=== PATIENT | male | born 1945 | race Caucasian/White ===

== ENCOUNTER → 2016-03-03 | Outpatient (CLI) | payer OTHER ==
[~2016-03-03] MED LIST: ALBU1AER9 INH; AMT25 PO; ASPI81TA28 PO; COEN1CAP28 PO; CYAN500T PO; DUTA0.5C PO; FLM4 PO; GABA-113 PO; GLC/500 PO; HYDR-5688 PO; MONT1TAB3 PO; OMEG10007 PO; ONDA4TAB10 SL; OXYC-57 PO; SIMV10TA2 PO; TAMS0.4C38 PO; VNTHFA/IN INH; VTMD1000 PO
[2016-03-03 14:01] LABS: % FREE PSA 39.8 %; FREE PSA 1.64 ng/ml; PROSTATE SPECIFIC ANTIGEN 4.12 ng/ml (0.000-4.000)
== END | disposition home or self-care (01) ==
LOC: C.LABBC 11:24
PROVIDERS: ATTEND Family Medicine
DX: Z11.59 Encounter for screening for other viral diseases (principal); N40.1 Benign prostatic hyperplasia with lower urinary tract symptoms

== ENCOUNTER 2016-03-18 06:56 | Emergency (ER) | payer OTHER ==
[~2016-03-18] VITALS: Ht 172.7 cm; Wt 108.6 kg
[~2016-03-18 06:56] MED LIST changes: -COEN1CAP28 PO; -CYAN500T PO; -DUTA0.5C PO; -FLM4 PO; -GABA-113 PO; -HYDR-5688 PO; -ONDA4TAB10 SL; -OXYC-57 PO; -TAMS0.4C38 PO; -VNTHFA/IN INH
[2016-03-18 06:58] VITALS: TEMP 36.6; Ht 172.7 cm; Wt 108.6 kg
[2016-03-18] MEDS ORDERED: COEN1CAP28 PO (07:31)
[2016-03-18] MEDS ORDERED: GABA-113 PO (07:31)
[2016-03-18] MEDS ORDERED: CYAN500T PO (07:31)
[2016-03-18] MEDS ORDERED: ACETAMINOPHEN 500 MG TAB PO STA (07:32)
[2016-03-18] MEDS ORDERED: KETOROLAC TROMETHAMINE 30 MG/ML VIAL IV STA (07:32)
[2016-03-18] MEDS ORDERED: SODIUM CHLORIDE 0.9% 1000ML 500 ML IV STA (07:32)
[2016-03-18] MEDS ORDERED: HYDROmorphone INJ 1 MG/ML SYR IV STA (07:32)
[2016-03-18] MEDS ORDERED: ONDANSETRON INJ 2 MG/ML 2 ML VIAL IV STA (07:32)
--- NOTE | 2016-03-18 07:40 | EMERGENCY ROOM VISIT NOTE ---
History Report prepared by Janes: Roberto Francisco Under the Supervision of: Dr. Goldy Mcallister M.D. First contact with patient: 07:07 Chief Complaint: KIDNEY STONE Stated Complaint: BACK PAIN,FLANK PAIN, KIDNEY STONE History of Present Illness The patient is a 70 year old male who presents to the Emergency Room with complaints of persistent left-sided abdominal pain that started upon waking this morning around 0300. He describes the pain as sharp and rates the pain as a 10 out of 10 in severity at worst. The pain woke him up this morning. He notes that the pain radiates to his left flank, groin area, and back. He also could not urinate this morning. The patient has chronic kidney stones, and has them around 4 times per year. He says these symptoms this morning remind him of the first time he ever had a kidney stone. He denies any fevers, chills, nausea , vomiting, or hematuria. The patient sees a urologist and has an appointment with the urologist next week. He notes that he does take [place] as needed for chronic back pain. Source of History: patient Onset: Upon waking this morning around 0300 Position: abdomen (left-sided) Symptom Intensity: 10/10 in severity Quality: sharp Timing: other (persistent) Associated Symptoms: + back pain, + urinary symptoms (inability to urinate this morning), No chills, No fevers, No nausea, No vomiting Note: Associated symptoms: Left flank and groin pain. Denies hematuria. Review of Systems See HPI for pertinent positives & negatives. A total of 10 systems reviewed and were otherwise negative. Past Medical & Surgical Medical Problems: (1) Asthma (2) Diabetes (3) HTN (hypertension) (4) Kidney stone (5) Kidney stones Family History FH: cancer Kidney stones Social History Smoking Status: Never Smoker Smokeless Tobacco Use: No Alcohol Use: none Drug Use: none Marital Status: Housing Status: lives with family Occupation Status: retired Current/Historical Medications Scheduled Aspirin (Aspirin Ec), 81 MG PO QAM Cholecalciferol (Vitamin D3), 1,000 INTER.UNIT PO QAM Coenzyme Q10 (Ubidecarenone) (Co Q10), 1 CAP PO DAILY Cyanocobalamin (Vitamin B-12), 1 TAB PO DAILY Fish Oil ([place]-3), 1-2 TABS PO Q2-3D Gabapentin (Neurontin), 300 MG PO TID Metformin Hcl (Glucophage), 1,000 MG PO BID Montelukast Sodium (Singulair), 10 MG PO HS Ondasetron Odt (Zofran Odt), 4 MG SL Q6H Simvastatin (Zocor), 10 MG PO QPM Tamsulosin Hcl (Flomax), 0.4 MG PO DAILY Scheduled PRN Albuterol (Proair Hfa), 1-2 PUFFS INH Q4 PRN for SOB/Wheezing Oxycodone/Acetaminophen 5MG/325MG (Percocet 5MG/325MG), 1-2 TABLETS PO Q4H PRN for Pain Allergies Coded Allergies: Fluticasone (Unverified Allergy, Unknown, TACHYCARDIA, 03/18/16) Milk Protein Extract (Unverified Allergy, Unknown, TACHYCARDIA, 03/18/16) Salmeterol (Unverified Allergy, Unknown, TACHYCARDIA, 03/18/16) Physical Exam Vital Signs Date Time Temp Pulse Resp B/P Pulse Ox O2 Delivery O2 Flow Rate FiO2 03/18/16 08:49 76 20 125/79 94 Room Air 03/18/16 06:58 36.6 81 18 163/95 92 Room Air Physical Exam CONSTITUTIONAL: Moderate painful distress. HEENT: No icterus, moist mucous membranes NECK: No meningismus, trachea is midline. CARDIOVASCULAR: Regular rate, normal perfusion RESPIRATORY: Unlabored breathing. Clear to auscultation. GASTROINTESTINAL: Non-tender GENITOURINARY: Left flank tenderness. MUSCULOSKELETAL: Full range of motion NEUROLOGIC: No acute gross focal deficits. PSYCHIATRIC: Normal affect SKIN: Normal for ethnicity. Medical Decision & Procedures ER Provider Diagnostic Interpretation: CT results as stated below per my review and radiologist interpretation. CT SCAN OF THE ABDOMEN AND PELVIS WITHOUT CONTRAST CLINICAL HISTORY: Flank pain COMPARISON STUDY: 03/24/2007 TECHNIQUE: CT scan of the abdomen and pelvis was performed from the lung bases to the proximal femurs. Images are reviewed in the axial, sagittal, and coronal planes. IV contrast was not administered for this examination. CT DOSE: 1690.04 mGy.cm FINDINGS: Lower chest: There are bibasal atelectatic changes. Liver: There is mild hepatic steatosis. No focal hepatic masses are visualized on this noncontrast study. Gallbladder: Unremarkable. Spleen: Normal in size and attenuation. Pancreas: Unremarkable. Adrenal glands: Unremarkable. Kidneys: 2 left renal calculi are visualized, the largest of which measures 2.5 mm. There is mild left-sided hydronephrosis. There is mild left-sided perinephric stranding. There is a 2 mm obstructing distal left ureteral calculus just proximal to the left ureterovesical junction. No bladder calculi are visualized. Bowel: There are no transition zones indicate bowel obstruction. There is no evidence of acute diverticulitis. The appendix appears normal. Peritoneum: There is no intraperitoneal free air or abdominal ascites. There are small bilateral fat-containing inguinal hernias. Vasculature: The abdominal aorta is normal in course and caliber. Adenopathy: None. Pelvic viscera: The prostate is enlarged measuring 7.8 cm. Skeletal structures: No destructive osseous lesions are seen. IMPRESSION: 1. Left-sided nephrolithiasis 2. 2 mm obstructing distal left ureteral calculus 3. No evidence of bowel obstruction. No evidence of free air 4. Normal appendix. No evidence of acute diverticulitis 5. Prostamegaly Electronically signed by: Andrews Day M.D. 03/18/2016 9:36 AM Dictated Date/Time: 03/18/2016 9:28 AM Laboratory Results 03/18/16 07:15 Red Blood Count 4.91, Mean Corpuscular Volume 88.4, Mean Corpuscular Hemoglobin 31.4, Mean Corpuscular Hemoglobin Concent 35.5, Mean Platelet Volume 10.5, Neutrophils (%) (Auto) 79.2, Lymphocytes (%) (Auto) 11.3, Monocytes (%) (Auto) 6.6, Eosinophils (%) (Auto) 1.7, Basophils (%) (Auto) 1.0, Neutrophils # (Auto) 8.24, Lymphocytes # (Auto) 1.18, Monocytes # (Auto) 0.69, Eosinophils # (Auto) 0.18, Basophils # (Auto) 0.10 03/18/16 07:15 Test 03/18/16 07:08 03/18/16 07:15 Urine Color YELLOW Urine Appearance CLEAR (CLEAR) Urine pH 5.0 (4.5-7.5) Urine Specific [place] 1.020 (1.000-1.030) Urine Protein NEG (NEG) Urine Glucose (UA) TRACE (NEG) Urine Ketones NEG (NEG) Urine Occult Blood 3+ (NEG) Urine Nitrite NEG (NEG) Urine Bilirubin NEG (NEG) Urine Urobilinogen NEG (NEG) Urine Leukocyte Esterase NEG (NEG) Urine WBC (Auto) 1-5 /hpf (0-5) Urine RBC (Auto) 10-30 /hpf (0-4) Urine Hyaline Casts (Auto) 1-5 /lpf (0-5) Urine Epithelial Cells (Auto) 5-10 /lpf (0-5) Urine Bacteria (Auto) NEG (NEG) Urine Crystals CALCIUM OXALATE (NONE Urine Mucus PRESENT (NONE PRSENT) White Blood Count 10.41 K/uL (4.8-10.8) Red Blood Count 4.91 M/uL (4.7-6.1) Hemoglobin 15.4 g/dL (14.0-18.0) Hematocrit 43.4 % (42-52) Mean Corpuscular Volume 88.4 fL (80-100) Mean Corpuscular Hemoglobin 31.4 pg (25-34) Mean Corpuscular Hemoglobin Concent 35.5 g/dl (32-36) Platelet Count 211 K/uL (130-400) Mean Platelet Volume 10.5 fL (7.4-10.4) Neutrophils (%) (Auto) 79.2 % Lymphocytes (%) (Auto) 11.3 % Monocytes (%) (Auto) 6.6 % Eosinophils (%) (Auto) 1.7 % Basophils (%) (Auto) 1.0 % Neutrophils # (Auto) 8.24 K/uL (1.4-6.5) Lymphocytes # (Auto) 1.18 K/uL (1.2-3.4) Monocytes # (Auto) 0.69 K/uL (0.11-0.59) Eosinophils # (Auto) 0.18 K/uL (0-0.5) Basophils # (Auto) 0.10 K/uL (0-0.2) RDW Standard Deviation 44.1 fL (36.4-46.3) RDW Coefficient of Variation 13.7 % (11.5-14.5) Immature Granulocyte % (Auto) 0.2 % Immature Granulocyte # (Auto) 0.02 K/uL (0.00-0.02) Anion Gap 11.0 mmol/L (3-11) Est Creatinine Clear Calc Drug Dose 98.2 ml/min Estimated GFR () 103.3 Estimated GFR (Non- 89.1 BUN/Creatinine Ratio 30.9 (10-20) Calcium Level 8.8 mg/dl (8.5-10.1) Labs reviewed by ED physician. Medications Administered Medications (Trade) Dose Ordered Sig/Koby Route Start Time Stop Time Status Last Admin Dose Admin Acetaminophen 1000 mg 1,000 mg NOW STAT PO 03/18/16 07:32 03/18/16 07:34 DC 03/18/16 07:51 1,000 MG Sodium Chloride (Nss 1000ml) 500 ml @ 0 mls/hr Q0M STAT IV 03/18/16 07:32 03/18/16 07:34 DC 03/18/16 07:42 500 MLS/HR Ondansetron HCl (Zofran Inj) 4 mg PRN STAT IV 03/18/16 07:32 03/18/16 07:34 DC 03/18/16 07:42 4 MG Ketorolac Tromethamine (Toradol Inj) 15 mg NOW STAT IV 03/18/16 07:32 03/18/16 07:34 DC 03/18/16 07:50 15 MG Hydromorphone HCl (Dilaudid Inj) 1 mg PRN STAT IV 03/18/16 07:32 03/18/16 07:34 DC 03/18/16 07:52 1 MG ED Course 0720: The medical student evaluated the patient in room B4B. 0732: Ordered Dilaudid Inj 1 mg IV PRN, Toradol Inj 15 mg IV, Zofran Inj 4 mg IV PRN, NSS 500 ml @ 0 mls/hr Wide Open IV, Tylenol Tab 1000 mg PO. 0733: Past medical records reviewed. The patient was evaluated in room B4B. A complete history and physical examination was performed. 1012 I reevaluated the patient and he is resting comfortably. The patient verbally expressed understanding and agreement of the treatment plan. The patient will be discharged. Medical Decision Differential diagnoses include: kidney stone, kidney infection, back pain. 70-year-old with history of kidney stones presents into the emergency room for several hours of moderate to severe waxing waning left-sided flank pain radiating to his groin consistent with prior episodes of ureterolithiasis. CT scan confirmed 2 mm stone in patient comfortable on reexamination prior to discharge at 10:15 AM. He has a urologist and understands to follow-up. Prescription for Percocet, Zofran and Flomax were written. patient had no further concerns Impression Primary Impression: Kidney stone Scribe Attestation The scribe's documentation has been prepared under my direction and personally reviewed by me in its entirety. I confirm that the note above accurately reflects all work, treatment, procedures, and medical decision making performed by me. Departure Information Dispostion Home / Self-Care Prescriptions Ondasetron Odt (ZOFRAN ODT) 4 Mg Tab 4 MG SL Q6H for Nausea, #20 TAB Prov: Goldy Mcallister MD 03/18/16 Tamsulosin Hcl (FLOMAX) 0.4 Mg Cap 0.4 MG PO DAILY, #10 CAP Prov: Goldy Mcallister MD 03/18/16 Oxycodone/Acetaminophen 5MG/325MG (PERCOCET 5MG/325MG) Tab 1-2 TABLETS PO Q4H Y for Pain, #20 TAB Prov: Goldy Mcallister MD 03/18/16 Referrals Azeem Garner D.O.Int.Med. (PCP) Forms HOME CARE DOCUMENTATION FORM, IMPORTANT VISIT INFORMATION Patient Instructions ED Stone Renal W Colic, Kidney Stones - [facility], My [facility]
[2016-03-18 07:43] LABS: COMPLETE YES; EOS % 1.7 %; HEMATOCRIT 43.4 % (42-52); IG% 0.2 %; LYMPH % 11.3 %; LYMPH ABS # 1.18 K/uL (1.2-3.4); MEAN CELL VOLUME 88.4 fL (80-100); MEAN CORPUSCULAR HEMOGLOBIN 31.4 pg (25-34); MEAN CORPUSCULAR HGB CONC 35.5 g/dl (32-36); MEAN PLATELET VOLUME 10.5 fL (7.4-10.4); MONO % 6.6 %; NEUT % 79.2 %; PLATELET COUNT 211 K/uL (130-400); RED BLOOD COUNT 4.91 M/uL (4.7-6.1); WHITE BLOOD COUNT 10.41 K/uL (4.8-10.8)
[2016-03-18 07:49] LABS: URINE APPEARANCE CLEAR (CLEAR); URINE BILIRUBIN NEG (NEG); URINE COLOR YELLOW; URINE NITRITE NEG (NEG); UROBILINOGEN NEG (NEG); ZZUR CULT IF INDIC CLEAN CATCH NO
[2016-03-18 07:50] LABS: BUN/CREATININE RATIO 30.9 (10-20); CALCIUM 8.8 mg/dl (8.5-10.1); CREATININE 0.86 mg/dl (0.60-1.40); POTASSIUM 4.4 mmol/L (3.5-5.1)
[2016-03-18 07:55] LABS: MANUAL MICROSCOPIC REQUIRED? NO; REVIEW REQ? YES
[2016-03-18 08:06] LABS: URINE MUCUS PRESENT (NONE PRSENT)
--- NOTE | 2016-03-18 09:38 | DIAGNOSTIC IMAGING REPORT ---
CT SCAN OF THE ABDOMEN AND PELVIS WITHOUT CONTRAST CLINICAL HISTORY: Flank pain COMPARISON STUDY: 03/24/2007 TECHNIQUE: CT scan of the abdomen and pelvis was performed from the lung bases to the proximal femurs. Images are reviewed in the axial, sagittal, and coronal planes. IV contrast was not administered for this examination. CT DOSE: 1690.04 mGy.cm FINDINGS: Lower chest: There are bibasal atelectatic changes. Liver: There is mild hepatic steatosis. No focal hepatic masses are visualized on this noncontrast study. Gallbladder: Unremarkable. Spleen: Normal in size and attenuation. Pancreas: Unremarkable. Adrenal glands: Unremarkable. Kidneys: 2 left renal calculi are visualized, the largest of which measures 2.5 mm. There is mild left-sided hydronephrosis. There is mild left-sided perinephric stranding. There is a 2 mm obstructing distal left ureteral calculus just proximal to the left ureterovesical junction. No bladder calculi are visualized. Bowel: There are no transition zones indicate bowel obstruction. There is no evidence of acute diverticulitis. The appendix appears normal. Peritoneum: There is no intraperitoneal free air or abdominal ascites. There are small bilateral fat-containing inguinal hernias. Vasculature: The abdominal aorta is normal in course and caliber. Adenopathy: None. Pelvic viscera: The prostate is enlarged measuring 7.8 cm. Skeletal structures: No destructive osseous lesions are seen. IMPRESSION: 1. Left-sided nephrolithiasis 2. 2 mm obstructing distal left ureteral calculus 3. No evidence of bowel obstruction. No evidence of free air 4. Normal appendix. No evidence of acute diverticulitis 5. Prostamegaly Electronically signed by: Andrews Day M.D. 03/18/2016 9:36 AM Dictated Date/Time: 03/18/2016 9:28 AM
[2016-03-18] MEDS ORDERED: OXYC-57 PO (10:01)
[2016-03-18] MEDS ORDERED: TAMS0.4C38 PO (10:08)
[2016-03-18] MEDS ORDERED: ONDA4TAB10 SL (10:09)
[2016-03-18 10:19] VITALS: BP 127/80; PULSE 76; O2SAT 94
== END 2016-03-18 10:20 | disposition home or self-care (01) ==
LOC: C.EDB 06:57
DX: N20.0 Calculus of kidney (principal); J45.909 Unspecified asthma, uncomplicated; E11.9 Type 2 diabetes mellitus without complications; I10 Essential (primary) hypertension; Z79.82 Long term (current) use of aspirin

== ENCOUNTER 2016-06-11 10:22 | Emergency (ER) | payer OTHER ==
[~2016-06-11] VITALS: Ht 172.7 cm; Wt 105.0 kg
[~2016-06-11 10:22] MED LIST changes: -AMT25 PO; +COEN1CAP28 PO; +CYAN500T PO; +GABA-113 PO; +ONDA4TAB10 SL; +OXYC-57 PO
[2016-06-11 10:28] VITALS: TEMP 36.4; Ht 172.7 cm; Wt 105.0 kg
[2016-06-11] MEDS ORDERED: SODIUM CHLORIDE 0.9% 1000ML 1,000 ML IV STA ×2 (11:02)
[2016-06-11] MEDS ORDERED: ONDANSETRON INJ 2 MG/ML 2 ML VIAL IV STA (11:02)
[2016-06-11] MEDS ORDERED: HYDROmorphone INJ 1 MG/ML SYR IV STA (11:02)
--- NOTE | 2016-06-11 11:08 | EMERGENCY ROOM VISIT NOTE ---
History Report prepared by Janes: Hipolito Carranza Under the Supervision of: Dr. Brenda Cortes M.D. First contact with patient: 10:51 Chief Complaint: KIDNEY STONE Stated Complaint: POSSIBLE KIDNEY STONE History of Present Illness The patient is a 70 year old male who presents to the Emergency Room with complaints of severe left flank pain starting yesterday and worsening today. He reports nausea but denies vomiting. He has a history of kidney stones with the last one occurring in March. The patient denies fevers, chills, chest pain, shortness of breath, or any other complaints. Source of History: patient Onset: yesterday Position: other (left flank) Symptom Intensity: severe Timing: worsening Associated Symptoms: No SOB, No chest pain, No chills, No fevers, No vomiting Review of Systems See HPI for pertinent positives & negatives. A total of 10 systems reviewed and were otherwise negative. Past Medical & Surgical Medical Problems: (1) Asthma (2) Diabetes (3) HTN (hypertension) (4) Kidney stone (5) Kidney stones Family History FH: cancer Kidney stones Social History Smoking Status: Never Smoker Alcohol Use: none Drug Use: none Marital Status: Housing Status: lives with family Occupation Status: retired Current/Historical Medications Scheduled Aspirin (Aspirin Ec), 81 MG PO QAM Cholecalciferol (Vitamin D3), 1,000 INTER.UNIT PO QAM Coenzyme Q10 (Ubidecarenone) (Co Q10), 1 CAP PO DAILY Cyanocobalamin (Vitamin B-12), 1 TAB PO DAILY Dutasteride (Avodart), 0.5 MG PO DAILY Fish Oil ([place]-3), 1-2 TABS PO Q2-3D Gabapentin (Neurontin), 300 MG PO TID Metformin Hcl (Glucophage), 1,000 MG PO BID Montelukast Sodium (Singulair), 10 MG PO HS Simvastatin (Zocor), 10 MG PO QPM Tamsulosin HCl (Tamsulosin HCl), 1 TAB PO DAILY Scheduled PRN Albuterol Hfa (Ventolin Hfa), 2-4 PUFFS INH Q6H PRN for SOB/Wheezing Hydrocodone/Acetaminophen 5MG/325MG ([place] 5MG/325MG), 1-2 TABLETS PO Q6 PRN for Pain Allergies Coded Allergies: Fluticasone (Unverified Allergy, Unknown, TACHYCARDIA, 4/28/17) Milk Protein Extract (Unverified Allergy, Unknown, TACHYCARDIA, 06/11/16) Salmeterol (Unverified Allergy, Unknown, TACHYCARDIA, 06/11/16) Physical Exam Vital Signs Date Time Temp Pulse Resp B/P Pulse Ox O2 Delivery O2 Flow Rate FiO2 06/11/16 13:16 73 19 154/80 94 06/11/16 12:39 70 18 160/89 94 06/11/16 10:28 36.4 75 20 173/97 93 Room Air Physical Exam Vital signs reviewed. General: Well-appearing, in no significant distress. HEENT: No scleral icterus, PERRLA, neck supple. Atraumatic. Cardiovascular: Regular rate and rhythm, no extra sounds. Pulmonary: Clear to auscultation bilaterally, normal work of breathing. Abdomen: Soft, mild left sided abdominal tenderness, nondistended, positive bowel sounds. No CVA tenderness. Musculoskeletal: Atraumatic, no peripheral edema. Neurologic: Patient awake alert and oriented x 3 Skin: Warm, dry, no rash Medical Decision & Procedures ER Provider Diagnostic Interpretation: X-ray results as stated below per interpretation by me and the radiologist: KUB CLINICAL HISTORY: Left flank pain. FINDINGS: 2 AP supine abdominal radiographs are compared to study dated 07/21/2012 and correlated with abdominal CT dated . There is a nonobstructed abdominal bowel gas pattern. A 4 mm calcification projects over the left sacrum in the pelvis. This was not seen on the 2013 examination and may represent a distal left ureteral stone. No definite calcifications are seen projecting over either kidney. The bony structures appear intact. IMPRESSION: 1. A 4 mm calcification projects over the left sacrum. This was not seen on the 2013 KUB and may represent a distal ureteral calculus given the history of left flank pain. 2. No additional calcifications are seen projecting over either kidney. 3. Nonobstructed abdominal bowel gas pattern. Electronically signed by: Vidal Raphael M.D. 06/11/2016 12:08 PM Dictated Date/Time: 06/11/2016 12:06 PM US results as stated below per my review and radiologist interpretation: ULTRASOUND KIDNEYS AND BLADDER CLINICAL HISTORY: Left flank pain. COMPARISON STUDY: Abdominal CT dated 03/18/16. KUB dated 06/11/2016. TECHNIQUE: Real-time, grayscale, and color flow sonography of the kidneys and bladder is performed. Images are reviewed in the transverse and longitudinal planes. FINDINGS: Kidneys: The kidneys are normal in size and echotexture. The right kidney measures 13.8 x 6.3 x 5.8 cm and the left kidney measures 14.8 x 7.0 x 6.2 cm. There is mild left-sided hydronephrosis. No hydronephrosis is seen on the right. No shadowing renal calculi are identified. There is no sonographic evidence of contour deforming renal mass lesion. No perinephric fluid is identified. Bladder: The prostate gland is enlarged and heterogeneous. The bladder is decompressed and grossly unremarkable. Ureteral jets were not clearly seen. Upper abdomen: Survey images of the liver show hepatomegaly and hepatic steatosis. IMPRESSION: 1. There is mild left hydronephrosis. When correlated with today's abdominal radiograph this is likely related to an obstructing distal left ureteral calculus. 2. There is no right-sided hydronephrosis. 3. Prostatomegaly. 4. The bladder was decompressed and grossly unremarkable. 5. Hepatomegaly and hepatic steatosis. Electronically signed by: Vidal Raphael M.D. 06/11/2016 12:36 PM Dictated Date/Time: 06/11/2016 12:33 PM Laboratory Results 06/11/16 10:58 Red Blood Count 5.02, Mean Corpuscular Volume 89.8, Mean Corpuscular Hemoglobin 30.3, Mean Corpuscular Hemoglobin Concent 33.7, Mean Platelet Volume 10.0, Neutrophils (%) (Auto) 79.8, Lymphocytes (%) (Auto) 10.8, Monocytes (%) (Auto) 7.6, Eosinophils (%) (Auto) 0.9, Basophils (%) (Auto) 0.6, Neutrophils # (Auto) 8.45, Lymphocytes # (Auto) 1.14, Monocytes # (Auto) 0.80, Eosinophils # (Auto) 0.10, Basophils # (Auto) 0.06 06/11/16 10:58 Test 06/11/16 10:53 06/11/16 10:58 Urine Color YELLOW Urine Appearance CLOUDY (CLEAR) Urine pH 5.0 (4.5-7.5) Urine Specific [place] 1.028 (1.000-1.030) Urine Protein NEG (NEG) Urine Glucose (UA) 2+ (NEG) Urine Ketones NEG (NEG) Urine Occult Blood 3+ (NEG) Urine Nitrite NEG (NEG) Urine Bilirubin NEG (NEG) Urine Urobilinogen NEG (NEG) Urine Leukocyte Esterase NEG (NEG) Urine WBC (Auto) 1-5 /hpf (0-5) Urine RBC (Auto) >30 /hpf (0-4) Urine Hyaline Casts (Auto) 1-5 /lpf (0-5) Urine Epithelial Cells (Auto) 0-5 /lpf (0-5) Urine Bacteria (Auto) NEG (NEG) Urine Crystals CALCIUM OXALATE (NONE White Blood Count 10.58 K/uL (4.8-10.8) Red Blood Count 5.02 M/uL (4.7-6.1) Hemoglobin 15.2 g/dL (14.0-18.0) Hematocrit 45.1 % (42-52) Mean Corpuscular Volume 89.8 fL (80-100) Mean Corpuscular Hemoglobin 30.3 pg (25-34) Mean Corpuscular Hemoglobin Concent 33.7 g/dl (32-36) Platelet Count 213 K/uL (130-400) Mean Platelet Volume 10.0 fL (7.4-10.4) Neutrophils (%) (Auto) 79.8 % Lymphocytes (%) (Auto) 10.8 % Monocytes (%) (Auto) 7.6 % Eosinophils (%) (Auto) 0.9 % Basophils (%) (Auto) 0.6 % Neutrophils # (Auto) 8.45 K/uL (1.4-6.5) Lymphocytes # (Auto) 1.14 K/uL (1.2-3.4) Monocytes # (Auto) 0.80 K/uL (0.11-0.59) Eosinophils # (Auto) 0.10 K/uL (0-0.5) Basophils # (Auto) 0.06 K/uL (0-0.2) RDW Standard Deviation 44.7 fL (36.4-46.3) RDW Coefficient of Variation 13.6 % (11.5-14.5) Immature Granulocyte % (Auto) 0.3 % Immature Granulocyte # (Auto) 0.03 K/uL (0.00-0.02) Red Blood Cell Morphology Unremarkable Anion Gap 7.0 mmol/L (3-11) Est Creatinine Clear Calc Drug Dose 91.2 ml/min Estimated GFR () 100.0 Estimated GFR (Non- 86.3 BUN/Creatinine Ratio 18.4 (10-20) Calcium Level 8.9 mg/dl (8.5-10.1) Total Bilirubin 0.5 mg/dl (0.2-1) Direct Bilirubin < 0.1 mg/dl (0-0.2) Aspartate Amino Transf (AST/SGOT) 33 U/L (15-37) Alanine Aminotransferase (ALT/SGPT) 59 U/L (12-78) Alkaline Phosphatase 72 U/L (45-117) Total Protein 7.6 gm/dl (6.4-8.2) Albumin 3.9 gm/dl (3.4-5.0) Laboratory results per my review. Medications Administered Medications (Trade) Dose Ordered Sig/Koby Route Start Time Stop Time Status Last Admin Dose Admin Hydromorphone HCl (Dilaudid Inj) 1 mg NOW STAT IV 06/11/16 11:02 06/11/16 11:04 DC 06/11/16 11:21 1 MG Ondansetron HCl 4 mg 4 mg NOW STAT IV 06/11/16 11:02 06/11/16 11:04 DC 06/11/16 11:21 4 MG Sodium Chloride 1,000 ml @ 999 mls/hr Q1H1M STAT IV 06/11/16 11:02 06/11/16 12:02 DC 06/11/16 11:20 999 MLS/HR Sodium Chloride (Nss 1000ml) 1,000 ml @ 999 mls/hr Q1H1M STAT IV 06/11/16 11:02 06/11/16 12:02 DC 06/11/16 11:21 999 MLS/HR Acetaminophen/ Hydrocodone Bitart ([place] 7.5/325 Tab) 1 tab NOW STAT PO 06/11/16 13:18 06/11/16 13:19 DC 06/11/16 13:38 1 TAB ED Course 1051: Past medical records reviewed. The patient was evaluated in room C09. A complete history and physical examination was performed. 1102: Sodium Chloride 1000 ml @ 999 mls/hr IV, Sodium Chloride 1000 ml @ 999 mls /hr IV, Zofran Inj 4 mg IV, Dilaudid Inj 1 mg IV 1313: Upon reevaluation, the patient appeared to have improvement of his symptoms. I discussed findings with him. He verbalized agreement of the treatment plan. The patient was discharged home. 1318: Acetaminophen/Hydrocodone Bitart 1 tab PO Medical Decision Differential diagnosis: Etiologies such as renal colic, appendicitis, diverticulitis, mesenteric ischemia, aortic pathology, infections, inflammatory bowel disease, PUD, biliary pathology, UTI, as well as others were entertained. This patient was evaluated and appeared to be in significant discomfort. IV access was obtained and laboratory work was drawn. The patient was given a dose of IV Dilaudid, Zofran and hydrated with normal saline solution. Ultrasound of the retroperitoneum and KUB x-ray was performed and reveals a 4 mm distal ureteral stone. Patient's urinalysis is significant for blood. The patient was informed of the findings. He was feeling somewhat improved after the above interventions. He was discharged with a prescription of 30 tablets of [place] 5/325. Patient will follow-up with his urologist, Dr. Barbosa, and will return to the ER for worsening of symptoms or any medical concerns. Impression Primary Impression: Renal colic on left side Scribe Attestation The scribe's documentation has been prepared under my direction and personally reviewed by me in its entirety. I confirm that the note above accurately reflects all work, treatment, procedures, and medical decision making performed by me. Departure Information Dispostion Home / Self-Care Prescriptions Hydrocodone/Acetaminophen 5MG/325MG ([place] 5MG/325MG) Tab 1-2 TABLETS PO Q6 Y for Pain, #30 TAB Prov: Brenda Cortes M.D. 06/11/16 Referrals Azeem Garner D.ORupertoInt.Med. (PCP) Jovan Barbosa MD Forms HOME CARE DOCUMENTATION FORM, IMPORTANT VISIT INFORMATION Patient Instructions My [facility] Additional Instructions Diagnosis: Left renal colic Drink plenty of clear fluids. [place] one to 2 tabs every 6 hours as needed for pain. Do not drive or take Tylenol with this medication. Follow-up with urology, Dr. Barbosa this week for reevaluation. Return to the ER for worsening of symptoms, fever, increased pain or any medical concerns.
[2016-06-11 11:42] LABS: HEMATOCRIT 45.1 % (42-52); MEAN CELL VOLUME 89.8 fL (80-100); MEAN CORPUSCULAR HEMOGLOBIN 30.3 pg (25-34); MEAN CORPUSCULAR HGB CONC 33.7 g/dl (32-36); PLATELET COUNT 213 K/uL (130-400); RED BLOOD COUNT 5.02 M/uL (4.7-6.1); WHITE BLOOD COUNT 10.58 K/uL (4.8-10.8)
[2016-06-11] MEDS ORDERED: FLM4 PO (11:54)
[2016-06-11 11:57] LABS: URINE APPEARANCE CLOUDY (CLEAR); URINE BILIRUBIN NEG (NEG); URINE COLOR YELLOW; URINE EPITHELIAL CELL AUTO 0-5 /lpf (0-5); URINE NITRITE NEG (NEG); URINE SPECIFIC GRAVITY 1.028 (1.000-1.030); UROBILINOGEN NEG (NEG); ZZUR CULT IF INDIC CLEAN CATCH NO
[2016-06-11] MEDS ORDERED: VNTHFA/IN INH (11:57)
[2016-06-11] MEDS ORDERED: DUTA0.5C PO (12:01)
[2016-06-11 12:06] LABS: BASO % 0.6 %; BASO ABS # 0.06 K/uL (0-0.2); COMPLETE YES; EOS % 0.9 %; IG% 0.3 %; LYMPH % 10.8 %; LYMPH ABS # 1.14 K/uL (1.2-3.4); MONO % 7.6 %; NEUT % 79.8 %
[2016-06-11 12:08] LABS: MANUAL MICROSCOPIC REQUIRED? NO; REVIEW REQ? YES
--- NOTE | 2016-06-11 12:09 | DIAGNOSTIC IMAGING REPORT ---
KUB CLINICAL HISTORY: Left flank pain. FINDINGS: 2 AP supine abdominal radiographs are compared to study dated 07/21/2012 and correlated with abdominal CT dated . There is a nonobstructed abdominal bowel gas pattern. A 4 mm calcification projects over the left sacrum in the pelvis. This was not seen on the 2013 examination and may represent a distal left ureteral stone. No definite calcifications are seen projecting over either kidney. The bony structures appear intact. IMPRESSION: 1. A 4 mm calcification projects over the left sacrum. This was not seen on the 2013 KUB and may represent a distal ureteral calculus given the history of left flank pain. 2. No additional calcifications are seen projecting over either kidney. 3. Nonobstructed abdominal bowel gas pattern. Electronically signed by: Vidal Raphael M.D. 06/11/2016 12:08 PM Dictated Date/Time: 06/11/2016 12:06 PM
[2016-06-11 12:18] LABS: ALT/SGPT 59 U/L (12-78); AST/SGOT 33 U/L (15-37); BLOOD UREA NITROGEN 17 mg/dl (7-18); BUN/CREATININE RATIO 18.4 (10-20); CALCIUM 8.9 mg/dl (8.5-10.1); CARBON DIOXIDE 27 mmol/L (21-32); CHLORIDE 107 mmol/L (98-107); CREATININE 0.91 mg/dl (0.60-1.40); GLUCOSE 150 mg/dl (70-99); POTASSIUM 3.9 mmol/L (3.5-5.1); SODIUM 141 mmol/L (136-145)
[2016-06-11 12:20] LABS: ALKALINE PHOSPHATASE 72 U/L (45-117)
--- NOTE | 2016-06-11 12:37 | DIAGNOSTIC IMAGING REPORT ---
ULTRASOUND KIDNEYS AND BLADDER CLINICAL HISTORY: Left flank pain. COMPARISON STUDY: Abdominal CT dated 03/18/16. KUB dated 06/11/2016. TECHNIQUE: Real-time, grayscale, and color flow sonography of the kidneys and bladder is performed. Images are reviewed in the transverse and longitudinal planes. FINDINGS: Kidneys: The kidneys are normal in size and echotexture. The right kidney measures 13.8 x 6.3 x 5.8 cm and the left kidney measures 14.8 x 7.0 x 6.2 cm. There is mild left-sided hydronephrosis. No hydronephrosis is seen on the right. No shadowing renal calculi are identified. There is no sonographic evidence of contour deforming renal mass lesion. No perinephric fluid is identified. Bladder: The prostate gland is enlarged and heterogeneous. The bladder is decompressed and grossly unremarkable. Ureteral jets were not clearly seen. Upper abdomen: Survey images of the liver show hepatomegaly and hepatic steatosis. IMPRESSION: 1. There is mild left hydronephrosis. When correlated with today's abdominal radiograph this is likely related to an obstructing distal left ureteral calculus. 2. There is no right-sided hydronephrosis. 3. Prostatomegaly. 4. The bladder was decompressed and grossly unremarkable. 5. Hepatomegaly and hepatic steatosis. Electronically signed by: Vidal Raphael M.D. 06/11/2016 12:36 PM Dictated Date/Time: 06/11/2016 12:33 PM
[2016-06-11] MEDS ORDERED: HYDR-5688 PO (13:06)
[2016-06-11 13:16] VITALS: BP 154/80; PULSE 73; O2SAT 94
[2016-06-11] MEDS ORDERED: HYDROCODONE/ACETAMINOPHEN 7.5/325MG TAB PO STA (13:18)
== END 2016-06-11 13:40 | disposition home or self-care (01) ==
LOC: C.EDB 10:23 → C.EDC 13:40
DX: N20.1 Calculus of ureter (principal); N23 Unspecified renal colic; Z87.442 Personal history of urinary calculi; J45.909 Unspecified asthma, uncomplicated; E11.9 Type 2 diabetes mellitus without complications; I10 Essential (primary) hypertension; Z80.9 Family history of malignant neoplasm, unspecified; Z79.82 Long term (current) use of aspirin; Z79.899 Other long term (current) drug therapy

== ENCOUNTER → 2016-06-14 | Outpatient (CLI) | payer OTHER ==
[~2016-06-14] MED LIST changes: -ALBU1AER9 INH; +DUTA0.5C PO; +FLM4 PO; +HYDR-5688 PO; -ONDA4TAB10 SL; -OXYC-57 PO; +VNTHFA/IN INH
--- NOTE | 2016-06-14 13:37 | DIAGNOSTIC IMAGING REPORT ---
KUB CLINICAL HISTORY: NEPHROLITHIASIS COMPARISON STUDY: 06/11/2016 FINDINGS: There is mild gaseous prominence of transverse colon. There is no conventional radiographic evidence of bowel obstruction. No renal calculi are visualized however the renal shadows are partially obscured by overlying bowel gas. There is a stable 3 mm left pelvic basin calcification. IMPRESSION: Stable indeterminate 3 mm left pelvic basin calcification Electronically signed by: Andrews Day M.D. 06/14/2016 1:36 PM Dictated Date/Time: 06/14/2016 1:35 PM
== END | disposition home or self-care (01) ==
LOC: C.RAD 13:09
PROVIDERS: ATTEND Nurse Practitioner Family
DX: N20.0 Calculus of kidney (principal)

== ENCOUNTER → 2016-06-15 | Outpatient (CLI) | payer OTHER | END | disposition home or self-care (01) | LOC: C.LABSPEC 16:57 | PROVIDERS: ATTEND Nurse Practitioner Family | DX: N20.0 Calculus of kidney (principal); R10.30 Lower abdominal pain, unspecified ==

== ENCOUNTER → 2016-06-15 | Outpatient (CLI) | payer OTHER ==
--- NOTE | 2016-06-15 15:54 | DIAGNOSTIC IMAGING REPORT ---
ABDOMEN AND PELVIS CT WITHOUT CONTRAST CT DOSE: 1804.10 mGy.cm HISTORY: Flank pain CONTRAST ALLERGY, ABD PAIN TECHNIQUE: Multiaxial CT images of the abdomen and pelvis were performed without the use of intravenous and oral contrast according to the standard department stone protocol. COMPARISON STUDY: 03/18/2016. FINDINGS: lung bases are clear. Liver spleen and pancreas are unremarkable. There is mild cortical scarring of the right kidney considered chronic. Left kidney shows moderate hydronephrosis. There is mild left perinephric fat stranding. There is a 1.2 cm exophytic left renal cyst unchanged. Several punctate nonobstructing left renal calcifications. There is moderate distention of the left ureter. There is a 3 mm obstructing calculus at the distal left ureter several centimeters proximal to the bladder. Prostate is moderately enlarged. There are small fat-containing inguinal hernias. Bowel pattern is nonobstructive. The appendix is normal and is air-filled. . IMPRESSION: 1. 3 mm obstructing calculus left ureter.. 2. Moderate left hydroureteronephrosis. 3. Several additional nonobstructing renal calcifications. 4. Nonobstructive bowel pattern with a normal appearing appendix. Electronically signed by: Tee Reyes M.D. 06/15/2016 3:52 PM Dictated Date/Time: 06/15/2016 3:48 PM
== END | disposition home or self-care (01) ==
LOC: C.RAD 13:28
PROVIDERS: ATTEND Nurse Practitioner Family
DX: N20.0 Calculus of kidney (principal); N20.1 Calculus of ureter; N13.30 Unspecified hydronephrosis

== ENCOUNTER → 2016-06-21 | Outpatient (CLI) | payer OTHER ==
[~2016-06-21] MED LIST changes: -OMEG10007 PO
== END | disposition home or self-care (01) ==
LOC: C.LABSPEC 17:18
PROVIDERS: ATTEND Nurse Practitioner Family
DX: N20.0 Calculus of kidney (principal)

== ENCOUNTER → 2016-06-25 | Day surgery (SDC) | payer OTHER ==
--- NOTE | 2016-06-16 09:40 | DIAGNOSTIC IMAGING REPORT ---
CHEST 2 VIEWS ROUTINE CLINICAL HISTORY: Preoperative evaluation. Nephrolithiasis. COMPARISON STUDY: Chest radiograph January 19, 2013. FINDINGS: Lung volumes are at the lower limits of normal. Mild elevation of the right hemidiaphragm is unchanged. Bibasilar opacities suggest atelectasis. There is no evidence of pulmonary edema. Mild cardiomegaly is noted. IMPRESSION: 1. No acute cardiopulmonary findings. 2. Bibasilar opacities suggestive of atelectasis. 3. Mild cardiomegaly. No evidence of pulmonary edema. Electronically signed by: Marquis Hodgson M.D. 06/16/2016 9:39 AM Dictated Date/Time: 06/16/2016 9:37 AM
[2016-06-17 12:30] VITALS: Ht 172.7 cm; Wt 107.7 kg
--- NOTE | 2016-06-22 11:29 | DIAGNOSTIC IMAGING REPORT ---
KUB CLINICAL HISTORY: N20.0 [id number] nephrocalcinosis COMPARISON STUDY: 06/14/2016 FINDINGS: The soft tissues, psoas shadows, renal outlines and intestinal gas pattern appear normal. There is no evidence for bowel obstruction. No abnormal abdominal calcifications are seen. Multiple pelvic vascular calcifications. Small calcification previously described appears to a past. IMPRESSION: No current evidence for nephrocalcinosis. Interval passage of the distal left ureteral calculus. Electronically signed by: Tee Reyes M.D. 06/22/2016 11:27 AM Dictated Date/Time: 06/22/2016 11:27 AM
[~2016-06-25] VITALS: Ht 172.7 cm; Wt 107.7 kg
== END | disposition home or self-care (01) ==
LOC: EDSTATUS 08:30 → C.PAT 13:50
PROVIDERS: ATTEND Urology
DX: N20.0 Calculus of kidney (principal); Z53.9 Procedure and treatment not carried out, unspecified reason

== ENCOUNTER → 2016-09-03 | Outpatient (CLI) | payer OTHER ==
[2016-09-03 13:34] LABS: ALT/SGPT 43 U/L (12-78); BLOOD UREA NITROGEN 18 mg/dl (7-18); CALCIUM 8.9 mg/dl (8.5-10.1); CARBON DIOXIDE 26 mmol/L (21-32); CHLORIDE 108 mmol/L (98-107); CHOLESTEROL 127 mg/dl (0-200); CREATININE 0.79 mg/dl (0.60-1.40); GLUCOSE 124 mg/dl (70-99); POTASSIUM 3.9 mmol/L (3.5-5.1); SODIUM 141 mmol/L (136-145); TRIGLYCERIDES 175 mg/dl (0-150); VERY LOW DENSITY LIPOPROT CALC 35 mg/dl
[2016-09-03 13:39] LABS: ALKALINE PHOSPHATASE 60 U/L (45-117); AST/SGOT 22 U/L (15-37); HDL CHOLESTEROL 32 mg/dl; LDL CHOLESTEROL CALCULATED 60 mg/dl
[2016-09-04 07:02] LABS: ESTIMATED AVERAGE GLUCOSE 140 mg/dl; HA1C FLAG Normal (Normal)
== END | disposition home or self-care (01) ==
LOC: C.LABPBG 10:42
PROVIDERS: ATTEND Neuromusculoskeletal Medicine & OMM
DX: Z00.00 Encounter for general adult medical examination without abnormal findings (principal); E11.9 Type 2 diabetes mellitus without complications; E78.00 Pure hypercholesterolemia, unspecified

== ENCOUNTER → 2017-05-04 | Day surgery (SDC) | payer OTHER ==
[2017-04-19 07:53] VITALS: BMI 35.0
[~2017-05-04] VITALS: Ht 172.7 cm; Wt 104.5 kg
[~2017-05-04] MED LIST changes: +LIDOCAINE HCL 2% 2 ML VIAL (20MG/ML) ONE; +MIDAZOLAM HCL 1 MG/ML 2ML VIAL ONE; +ONDANSETRON INJ 2 MG/ML 2 ML VIAL ONE; +PROPOFOL IV EMULSION 10 MG/ML 20 ML VIAL IV ONE; +SODIUM CHLORIDE 0.9% 500ML 500 ML IV ONE; +SYMIN160 INH
[2017-05-04 09:48] VITALS: Ht 172.7 cm; Wt 104.5 kg
[2017-05-04 09:57] VITALS: TEMP 36.6
--- NOTE | 2017-05-04 10:54 | Endo History and Physical ---
History & Physical Date of Service: May 04, 2017. Chief Complaint: rectal poyps and family hx colon cancer Referring Physician: Dr. Campos History of Present Illness 71 yo CM who presents for colonoscopy secondary to rectal polyps and family history of colon cancer. Past Medical History Diabetes, Asthma, Male Genitourinary Prob., High Cholesterol, Sleep Apnea Past Surgical History Hx Cardiac Surgery: No Hx Internal Defibrillator: No Hx Pacemaker: No Hx Abdominal Surgery: No Hx of Implantable Prosthesis: No Hx Post-Op Nausea and Vomiting: No Hx Cancer Surgery: No Hx Thoracic Surgery: No Hx Orthopedic: Yes (LAMINECTOMY, MULTIPLE NERVE BLOCKS/INJECTIONS/RIZOTOMIES) Hx Urinary Tract Surgery: No Family History Colon CA, Esophogeal CA, Polyp, IBD Social History Smoking Status: Never Smoker Hx Substance Use: Yes (SEE MED REC) Hx Alcohol Use: No Allergies Coded Allergies: Fluticasone (Unverified Allergy, Unknown, TACHYCARDIA, 04/19/17) Milk Protein Extract (Unverified Allergy, Unknown, TACHYCARDIA, 04/19/17) Salmeterol (Unverified Allergy, Unknown, TACHYCARDIA, 04/19/17) Current Medications Reported Home Medications Medications Dose Route/Sig Max Daily Dose Days Date Category Dose Instructions [place] 5MG/325MG (Acetaminophen/Hydrocodone Bitart) Tab 1 Tablet PO BID PRN 04/19/17 Reported PRN PAIN Symbicort 160/4.5 Inhaler (Budesonide/Formoterol Fumarate) Aero 2 Puffs INH BID PRN 04/19/17 Reported Avodart (Dutasteride) 0.5 Mg Cap 0.5 Mg PO QAM 06/11/16 Reported Ventolin Hfa (Albuterol) 200 Puffs/92929 Mcg Aers 2-4 Puffs INH Q6H PRN 06/11/16 Reported Tamsulosin HCl 0.4 Mg Cap 0.4 Mg PO QPM 06/11/16 Reported half hour after dinner Co Q10 (Coenzyme Q10) Unknown Strength Cap 1 Cap PO QAM 03/18/16 Reported Vitamin B-12 (Cyanocobalamin) Unknown Strength Tab 1 Tab PO QAM 03/18/16 Reported Neurontin (Gabapentin) 300 Mg Cap 300 Mg PO TID 03/18/16 Reported Vitamin D3 (Cholecalciferol) 1,000 Inter.unit Tab 1,000 Inter.unit PO QAM 01/22/14 Reported Zocor (Simvastatin) 10 Mg Tab 10 Mg PO QPM 01/22/14 Reported Singulair (Montelukast Sodium) 10 Mg Tab 10 Mg PO HS 01/22/14 Reported Glucophage (Metformin Hcl) 500 Mg Tab 1,000 Mg PO BID 01/22/14 Reported Aspirin Ec (Aspirin) 81 Mg Tab 81 Mg PO QAM 01/22/14 Reported Vital Signs Weight (Kilograms): 104.55 Height (Feet): 5 Height (Inches): 8 Date Time Temp Pulse Resp B/P (MAP) Pulse Ox O2 Delivery O2 Flow Rate FiO2 05/04/17 09:57 36.6 70 20 146/93 (110) 92 Room Air Physical Exam General Appearance: WD/WN, no apparent distress Respiratory/Chest: Auscultation: breath sounds normal Cardiovascular: Heart Auscultation: RRR Abdomen: Bowel Sounds: normal Inspection & Palpation: soft, non-distended, no tenderness, guarding & rebound Assessment and Plan Assessment: 71 yo CM who presents for colonoscopy secondary to rectal polyps and family history of colon cancer. Plan: Proceed with colonoscopy.
--- NOTE | 2017-05-04 11:26 | Discharge Instructions ---
Endoscopy Patient Instructions Date / Procedure(s) Performed May 04, 2017. Colonoscopy Allergy Information Coded Allergies: Fluticasone (Unverified Allergy, Unknown, TACHYCARDIA, 04/19/17) Milk Protein Extract (Unverified Allergy, Unknown, TACHYCARDIA, 04/19/17) Salmeterol (Unverified Allergy, Unknown, TACHYCARDIA, 04/19/17) Discharge Date / Findings May 04, 2017. Colon polyps Diverticulosis Internal hemorrhoids Medication Instructions Stopped Medication(s): metformin and all supplements OK to resume all medications today as prescribed Reported Home Medications Medications Dose Route/Sig Max Daily Dose Days Date Category Dose Instructions [place] 5MG/325MG (Acetaminophen/Hydrocodone Bitart) Tab 1 Tablet PO BID PRN 04/19/17 Reported PRN PAIN Symbicort 160/4.5 Inhaler (Budesonide/Formoterol Fumarate) Aero 2 Puffs INH BID PRN 04/19/17 Reported Avodart (Dutasteride) 0.5 Mg Cap 0.5 Mg PO QAM 06/11/16 Reported Ventolin Hfa (Albuterol) 200 Puffs/16654 Mcg Aers 2-4 Puffs INH Q6H PRN 06/11/16 Reported Tamsulosin HCl 0.4 Mg Cap 0.4 Mg PO QPM 06/11/16 Reported half hour after dinner Co Q10 (Coenzyme Q10) Unknown Strength Cap 1 Cap PO QAM 03/18/16 Reported Vitamin B-12 (Cyanocobalamin) Unknown Strength Tab 1 Tab PO QAM 03/18/16 Reported Neurontin (Gabapentin) 300 Mg Cap 300 Mg PO TID 03/18/16 Reported Vitamin D3 (Cholecalciferol) 1,000 Inter.unit Tab 1,000 Inter.unit PO QAM 01/22/14 Reported Zocor (Simvastatin) 10 Mg Tab 10 Mg PO QPM 01/22/14 Reported Singulair (Montelukast Sodium) 10 Mg Tab 10 Mg PO HS 01/22/14 Reported Glucophage (Metformin Hcl) 500 Mg Tab 1,000 Mg PO BID 01/22/14 Reported Aspirin Ec (Aspirin) 81 Mg Tab 81 Mg PO QAM 01/22/14 Reported Provider Instructions Activity Restrictions - No exercising or heavy lifting for 24 hours. - Do not drink alcohol the day of the procedure. - Do not drive a car or operate machinery until the day after the procedure. - Do not make any important decisions or sign important papers in 24 hours after the procedure. Following Day: - Return to full activity which may include returning to work/school. Diet Start your diet with liquids and light foods (jello, soup, juice, toast). Then eat your usual diet if not nauseated. Treatment For Common After Affects For mild abdominal pain, bloating, or excessive gas: - Rest - Eat lightly - Lie on right side Follow-Up Information Follow-up with Dr. Campos as scheduled Anesthesia Information What You Should Know You have had a procedure that required some medicine to reduce anxiety and discomfort. This treatment is called moderate sedation. After receiving the treatment, you may be sleepy, but you will be able to breathe on your own. The effects of the treatment may last for several hours. Follow these instructions along with Activity/Diet recommendations noted above: * Do NOT do anything where dizziness or clumsiness would be dangerous. * Rest quietly at home today, then you can be up and about tomorrow. * Have a responsible person stay with you the rest of today. * You may have had an I.V. today. If so, you may take the dressing off later today. Recommendations Call your doctor if: * Trouble breathing * Continuous vomiting for more than 24 hours * Temperature above 101 degrees * Severe abdominal pain or bloating * Pain not relieved by pain medicine ordered * There is increased drainage or redness from any incision * A large amount of rectal bleeding greater than 2-3 tablespoons. (If you had a polyp/s removed or have hemorrhoids, a small amount of blood - from the rectum is to be expected.) * You have any unanswered questions or concerns. IN THE EVENT OF A SERIOUS EMERGENCY, GO TO THE NEAREST EMERGENCY ROOM Your discharge instructions were prepared by provider Pranay Martinez. Patient Instructions Signature Page Jani Araujo Patient (or Guardian) Signature/Date: I have read and understand the instructions given to me by my caregivers. Caregiver/RN/Doctor Signature/Date: The above-named patient and/or guardian has received patient instructions on this date. + Original Patient Signature Page (only) stays with chart. Please make copy for patient.
--- NOTE | 2017-05-04 11:30 | GI REPORT ---
Procedure Date: 05/04/2017 10:17 AM THIS REPORT HAS BEEN AMENDED Addendum Number: 1 Addendum Date: 05/04/2017 12:00:20 PM The three descending colon polyps were removed with a cold snare. Procedure: Colonoscopy Indications: High risk colon cancer surveillance: Personal history of colonic polyps, Family history of colon cancer in multiple first-degree relatives Medicines: Monitored Anesthesia Care Complications: No immediate complications. Estimated Blood Loss: Estimated blood loss: none. Procedure: Pre-Anesthesia Assessment: - Prior to the procedure, a History and Physical was performed, and patient medications and allergies were reviewed. The patient's tolerance of previous anesthesia was also reviewed. The risks and benefits of the procedure and the sedation options and risks were discussed with the patient. All questions were answered, and informed consent was obtained. Prior Anticoagulants: The patient has taken aspirin, last dose was 10 days prior to procedure. ASA Grade Assessment: II - A patient with mild systemic disease. After reviewing the risks and benefits, the patient was deemed in satisfactory condition to undergo the procedure. After I obtained informed consent, the scope was passed under direct vision. Throughout the procedure, the patient's blood pressure, pulse, and oxygen saturations were monitored continuously. The scope was introduced through the anus and advanced to the terminal ileum. The colonoscopy was performed without difficulty. The patient tolerated the procedure well. The quality of the bowel preparation was good. The terminal ileum, ileocecal valve, appendiceal orifice, and rectum were photographed. Findings: The perianal and digital rectal examinations were normal. Three sessile polyps were found in the descending colon. The polyps were 5 to 6 mm in size. These polyps were removed with a hot snare. Resection and retrieval were complete. Multiple small-mouthed diverticula were found in the sigmoid colon. Non-bleeding internal hemorrhoids were found during retroflexion. The hemorrhoids were small. Impression: - Three 5 to 6 mm polyps in the descending colon, removed with a hot snare. Resected and retrieved. - Diverticulosis in the sigmoid colon. - Non-bleeding internal hemorrhoids. Recommendation: - Resume previous diet. - Continue present medications. - Repeat colonoscopy for surveillance based on pathology results. - Return to primary care physician as previously scheduled. Pranay Martinez DO 05/04/2017 11:30:33 AM This report has been signed electronically. Note Initiated On: 05/04/2017 10:17 AM I attest to the content of the Intraoperative Record and orders documented therein, exceptions below Pranay Martinez, 05/04/2017 12:00:44 PM This report has been signed electronically.
--- NOTE | 2017-05-04 11:41 | Anesthesiology Progress Note ---
Anesthesia Post Op Note Date & Time May 04, 2017 at 11:40 Vital Signs Pain Intensity: 0 Vital Signs Past 12 Hours Date Time Temp Pulse Resp B/P (MAP) Pulse Ox O2 Delivery O2 Flow Rate FiO2 05/04/17 11:25 69 16 129/78 (95) 94 Room Air 05/04/17 09:57 36.6 70 20 146/93 (110) 92 Room Air Notes Mental Status: alert / awake / arousable, participated in evaluation Pt Amnestic to Procedure: Yes Nausea / Vomiting: adequately controlled Pain: adequately controlled Airway Patency, RR, SpO2: stable & adequate BP & HR: stable & adequate Hydration State: stable & adequate Anesthetic Complications: no major complications apparent
[2017-05-04 11:55] VITALS: BP 117/74; PULSE 65; O2SAT 93
== END | disposition home or self-care (01) ==
LOC: C.GI 09:07
PROVIDERS: ATTEND Internal Medicine
DX: Z12.11 Encounter for screening for malignant neoplasm of colon (principal); D12.4 Benign neoplasm of descending colon; K57.30 Diverticulosis of large intestine without perforation or abscess without bleeding; Z86.010 Personal history of colon polyps; G47.33 Obstructive sleep apnea (adult) (pediatric); M19.90 Unspecified osteoarthritis, unspecified site; E11.9 Type 2 diabetes mellitus without complications; I10 Essential (primary) hypertension; Z79.82 Long term (current) use of aspirin; Z80.0 Family history of malignant neoplasm of digestive organs

== ENCOUNTER → 2017-06-22 | Outpatient (CLI) | payer OTHER ==
[~2017-06-22] MED LIST changes: -LIDOCAINE HCL 2% 2 ML VIAL (20MG/ML) ONE; -MIDAZOLAM HCL 1 MG/ML 2ML VIAL ONE; -ONDANSETRON INJ 2 MG/ML 2 ML VIAL ONE; -PROPOFOL IV EMULSION 10 MG/ML 20 ML VIAL IV ONE; -SODIUM CHLORIDE 0.9% 500ML 500 ML IV ONE
[2017-06-22 14:04] LABS: HEMOGLOBIN A1C 6.7 % (4.5-5.6)
[2017-06-22 14:46] LABS: ALBUMIN 3.4 gm/dl (3.4-5.0); ALKALINE PHOSPHATASE 59 U/L (45-117); ALT/SGPT 43 U/L (12-78); BLOOD UREA NITROGEN 17 mg/dl (7-18); CALCIUM 8.3 mg/dl (8.5-10.1); CARBON DIOXIDE 23 mmol/L (21-32); GLUCOSE 139 mg/dl (70-99); POTASSIUM 3.7 mmol/L (3.5-5.1); SODIUM 137 mmol/L (136-145)
[2017-06-22 14:58] LABS: AST/SGOT 32 U/L (15-37); CHOLESTEROL 123 mg/dl (0-200); LDL CHOLESTEROL CALCULATED 57 mg/dl; TOTAL PROTEIN 7.3 gm/dl (6.4-8.2)
== END | disposition home or self-care (01) ==
LOC: C.LABPBG 07:37
PROVIDERS: ATTEND Family Medicine
DX: E11.9 Type 2 diabetes mellitus without complications (principal); J45.909 Unspecified asthma, uncomplicated; E78.00 Pure hypercholesterolemia, unspecified

== ENCOUNTER → 2017-06-22 | Outpatient (CLI) | payer OTHER ==
--- NOTE | 2017-06-22 12:44 | DIAGNOSTIC IMAGING REPORT ---
L-SPINE FLEX/EXT BENDING MIN 6 CLINICAL HISTORY: BACK PAIN pain COMPARISON STUDY: None FINDINGS: Examination is acquired with the patient in neutral flexion as well as extension views. There is mild degenerative disc change throughout the entire lumbar region. There is no evidence for subluxation with the patient in flexion or extension. Posterior elements appear to be intact. Moderate reactive anterior osteophytic changes throughout. IMPRESSION: 1. Moderate degenerative disc change. 2. No evidence for subluxation on a positional basis with no variation in flexion or extension. The above report was generated using voice recognition software. It may contain grammatical, syntax or spelling errors. Electronically signed by: Tee Reyes M.D. 06/22/2017 12:43 PM Dictated Date/Time: 06/22/2017 12:42 PM
--- NOTE | 2017-06-22 12:48 | DIAGNOSTIC IMAGING REPORT ---
THORACIC SPINE 3 VIEWS HISTORY: Upper back pain. COMPARISON: Thoracic spine 06/10/2008. FINDINGS: There is no fracture. No subluxation. Flowing anterior osteophytes within the mid to lower thoracic spine. Disc spaces are relatively preserved for age. Paraspinal soft tissues are unremarkable. IMPRESSION: No fracture or subluxation within the thoracic spine. Electronically signed by: Yobany Eng M.D. 06/22/2017 12:47 PM Dictated Date/Time: 06/22/2017 12:46 PM
== END | disposition home or self-care (01) ==
LOC: C.RAD1850 11:52
PROVIDERS: ATTEND Nurse Practitioner Family
DX: M54.5 Low back pain (principal); M51.36 Other intervertebral disc degeneration, lumbar region

== ENCOUNTER → 2017-09-27 | Outpatient (CLI) | payer OTHER | END | disposition home or self-care (01) | LOC: C.LABPBG 11:19 | PROVIDERS: ATTEND Family Medicine | DX: N40.1 Benign prostatic hyperplasia with lower urinary tract symptoms (principal) ==

== ENCOUNTER 2018-10-07 20:08 | Inpatient (IN) ==
[2018-10-07] MEDS ORDERED: SODIUM CHLORIDE 0.9% 1000ML 1,000 ML IV ONE (20:20)
[2018-10-07] MEDS ORDERED: KETOROLAC TROMETHAMINE 15 MG/ML VIAL IV STA ×2 (20:20→22:24)
[2018-10-07 20:41] LABS: Basophils # (auto) 0.06 K/uL (0-0.2); Basophils % (auto) 0.5 %; Eosinophils # (auto) 0.06 K/uL (0-0.5); Eosinophils % (auto) 0.5 %; Hematocrit (blood only) 40.4 % (42-52); Hemoglobin 14.2 g/dL (14.0-18.0); Immature Granulocytes # (auto) 0.03 K/uL (0.00-0.02); Immature Granulocytes % (auto) 0.2 %; Lymphocytes # (auto) 1.48 K/uL (1.2-3.4); Lymphocytes % (auto) 11.2 %; Mean Corpuscular Hemoglobin 31.5 pg (25-34); Mean Corpuscular Hgb Conc 35.1 g/dL (32-36); Mean Corpuscular Volume 89.6 fL (80-100); Mean Platelet Volume 9.3 fL (7.4-10.4); Monocytes # (auto) 1.17 K/uL (0.11-0.59); Monocytes % (auto) 8.8 %; Neutrophils # (auto) 10.44 K/uL (1.4-6.5); Neutrophils % (auto) 78.8 %; Platelet Count 216 K/uL (130-400); RDW Coefficient of Variation 13.5 % (11.5-14.5); RDW Standard Deviation 44.3 fL (36.4-46.3); Red Blood Count 4.51 M/uL (4.7-6.1); White Blood Count 13.24 K/uL (4.8-10.8)
[2018-10-07 20:55] LABS: Appearance Urine Clear (Clear); Bacteria Urine Automated Negative (Negative); Bilirubin Urine Negative (Negative); Blood Urine 1+ (Negative); Color Urine Yellow; Glucose Urine UA 2+ (Negative); Ketones Urine Negative (Negative); Leukocyte Esterase Urine Negative (Negative); Nitrite Urine Negative (Negative); Protein Urine Trace (Negative); RBC Urine Automated 0-4 /hpf (0-4); Specific Gravity Urine 1.023 (1.000-1.030); Urobilinogen Urine Negative (Negative)
[2018-10-07 20:58] LABS: Albumin Level 3.4 gm/dl (3.4-5.0); BUN Creatinine Ratio 15.1 (10-20); Bilirubin Direct 0.2 mg/dl (0-0.2); Creatinine Clr Calc Pharmacy 59.9 ml/min; Est GFR (Non-African American) 54.4; Potassium 3.9 mmol/L (3.5-5.1)
[2018-10-07 21:01] LABS: Bilirubin,Total 0.7 mg/dl (0.2-1); Total Protein 7.4 gm/dl (6.4-8.2)
--- NOTE | 2018-10-07 21:25 | CT Scan Report ---
ABDOMEN AND PELVIS CT WITHOUT CONTRAST CT DOSE: 1046.29 mGycm HISTORY: Acute left flank and left lower quadrant abdominal pain L flank pain and LLQ pain hx kidney stones TECHNIQUE: Multiaxial CT images of the abdomen and pelvis were performed without contrast. A dose lo wering technique was utilized adhering to the principles of ALARA. COMPARISON STUDY: CT abdomen and pelvis 06/15/2016 FINDINGS: Mild subsegmental linear bibasilar atelectasis. There is no pneumatosis or pneumoperitoneum identifie d. Coronary arterial calcifications are noted. The imaged inferior cardiac chambers are mildly enlarg ed. Limited evaluation of the solid abdominal organs without the use of IV contrast. Suggestion of mi ld hepatic steatosis without cirrhosis or focal hepatic mass lesion. Liver is mildly enlarged. Spleen is mildly enlarged, 13.4 cm. Pancreas and adrenal glands are unremarkable. Contracted gallbladder. Nonspecific bilateral perinephric stranding. Suggested cyst of the inferior pole right kidney, 1.3 cm . Cephalic 1.4 cm cyst of the superior pole left kidney. No meter nonobstructing calculus of the inte rpolar right kidney. Air is no right-sided ureteral calculi or obstructive uropathy. There are 2 nono bstructing calculi noted about the inferior pole left kidney measuring up to 4 mm. Mild to moderate l eft-sided hydroureteronephrosis with periureteral inflammation secondary to a 5 x 5 x 7 mm calculus o f the distal left ureter approximately 1.0 cm proximal to the ureterovesicular junction. Decompressed bladder with wall thickening and perivesicular stranding. Prostamegaly. Small fat filled bilateral i nguinal hernias. No aortic aneurysm or adenopathy. No bowel obstruction or bowel wall thickening. Colonic diverticulosis without acute diverticulitis. M ild gaseous distention of the large bowel. Noninflamed appendix. Small fat filled periumbilical herni a. Soft tissues are within normal limits. Degenerative changes of the spine, pelvis and hips. IMPRESSION: 1. Mild to moderate left-sided hydroureteronephrosis secondary to a 5 x 5 x 7 mm calculus of the dist al left ureter approximately 1.0 cm proximal to the ureterovesicular junction. 2. Nonobstructing bilateral nephrolithiasis. 3. No bowel obstruction or bowel wall thickening. 4. Normal appendix. 5. Hepatosplenomegaly with hepatic steatosis. 6. Additional findings as above. Electronically signed by: Suman Bennett M.D. 10/07/2018 9:23 PM
--- NOTE | 2018-10-07 23:19 | History & Physical Report ---
Date of Service October 07, 2018 Assessment & Plan (1) Hydroureteronephrosis: 73-year-old male with history of prior kidney stones, DM 2, asthma, hypertension presents with recurrent episode of kidney stone. Reports left- sided low back pain and flank pain starting Tuesday, 4 days aFound to have hydroureteronephrosis secondary to calculus in the left distal ureter Hydroureteronephrosis secondary to calculus in left distal ureter 5 x 5 x 7 mm Afebrile, WBC 13.2 CT abdomen: Mild to moderate left hydroureteronephrosis secondary to 5 x 5 x 7 mm calculus left distal ureter 1 cm proximal to ureterovesicular junction BUN/creatinine 20/1.3 UA 1+ blood Started on Rocephin, Toradol as needed, Zofran as needed and Tylenol as needed N.p.o. for possible procedure, On IVF NS at 125cc/hr Urology consulted Constipation/bloating MiraLAX x1 and simethicone x1, Colace scheduled DM2 Hold home metformin Started on sliding scale insulin Continue home simvastatin and aspirin Asthma Continue home montelukast BPH PSA 1.29 Continue home tamsulosin and dutasteride Chronic back pain Continue home gabapentin Code: Full DVT prop: SCDs, encourage ambulation dispo: med/sugr (2) Diabetes: (3) Asthma: (4) HTN (hypertension): (5) Kidney stones: History of Present Illness Chief Complaint: L flank/abdominal pain Primary Care Provider: Flory Campos DO 73-year-old male with history of prior kidney stones, DM 2, asthma, hypertension presents with recurrent episode of kidney stone. Reports left-sided low back pain and flank pain starting Tuesday, 4 days ago. Pain is constant in nature and occasionally he also has stabbing pain. 9 out of 10 in intensity. Associated with left-sided abdominal pain, nausea, fever highest temp reported 100.7, chills. Reports also feeling somewhat bloated and constipated today. Last bowel movement was yesterday, nonbloody loose and not dark in color. Denies any headache, lightheadedness, chest pain, shortness of breath, vomiting, dysuria.. Reports multiple previous episodes of hospitalization for kidney stones but no procedures. Allergies Allergy/AdvReac Type Severity Reaction Status Date / Time fluticasone AdvReac Unknown TACHYCARDIA Verified 10/08/18 10:34 salmeterol AdvReac Unknown TACHYCARDIA Verified 10/08/18 10:34 Home Medications Home Medications Medication Instructions Recorded Confirmed Type metformin 500 mg tablet 1,000 mg PO BID #360 tab 09/11/18 10/07/18 Rx aspirin 81 mg PO QAM 10/07/18 10/07/18 History coenzyme Q10 [CoQ-10] 100 mg PO HS 10/07/18 10/07/18 History dutasteride 0.5 mg PO QAM 10/07/18 10/07/18 History gabapentin 300 mg PO HS 10/07/18 10/07/18 History montelukast 10 mg PO HS 10/07/18 10/07/18 History multivitamin 1 tab PO DAILY 10/07/18 10/07/18 History simvastatin 10 mg PO HS 10/07/18 10/07/18 History tamsulosin 0.4 mg PO DAILY 10/07/18 10/07/18 History sulfamethoxazole-trimethoprim 1 tab PO DAILY 7 Days #1 tab 10/08/18 Rx [Bactrim DS] Past Med/Surg History Medical History Diabetes (Chronic) Asthma (Chronic) HTN (hypertension) (Chronic) Flank pain (Acute) Kidney stones (Chronic) Anemia Coronary artery calcification HLD (hyperlipidemia) Hydronephrosis, left Obesity Family History Other No significant family history Social History Preferred Language: Slovenian Communication Ability: Effective Drama Director Required: No Beliefs That Will Affect Care: Spiritual Current Living Situation: Spouse Feels Safe at Home: Yes Smoking Status: Never smoker Hx Alcohol Use: Yes Hx Substance Use: No Review of Systems Review of Systems: As per HPI Physical Exam Physical Exam: General: In NAD Neuro: A&O x 4 Pulm: CTAB equal breath sounds bilaterally CV: RRR, 3/6 systolic murmur appreciated throughout precordium, no r/g Abdomen:+BS, no TTP in all quadrants, non-distended, small umbilical hernia and RUQ region abdominal hernia Back: no CVA TTP bilaterally LE: no LE edema, no calf TTP Results & Data Vital Signs (Past 12 Hours) Vital Signs Temp Pulse Pulse Resp BP BP Pulse Ox 10/07/18 22:32 75 18 131/77 95 10/07/18 20:10 37.3 C 98 H 18 171/80 H 96 Laboratory Results Abnormal lab results 10/07/18 10/07/18 10/07/18 Range/Units 20:32 20:32 20:33 WBC 13.24 H (4.8-10.8) K/uL RBC 4.51 L (4.7-6.1) M/uL Hct 40.4 L (42-52) % Immature Gran # (Auto) 0.03 H (0.00-0.02) K/uL Neut # (Auto) 10.44 H (1.4-6.5) K/uL [place] # (Auto) 1.17 H (0.11-0.59) K/uL BUN 20 H (7-18) mg/dl Glucose 133 H (70-99) mg/dl AST 10 L (15-37) U/L Urine Protein Trace H (Negative) Urine Glucose (UA) 2+ H (Negative) Urine Blood 1+ H (Negative) U Epithel Cells (Auto) 5-10 H (0-5) /lpf Diagnostic Findings ABDOMEN AND PELVIS CT WITHOUT CONTRAST CT DOSE: 1046.29 mGycm HISTORY: Acute left flank and left lower quadrant abdominal pain L flank pain and LLQ pain hx kidney stones TECHNIQUE: Multiaxial CT images of the abdomen and pelvis were performed without contrast. A dose lowering technique was utilized adhering to the principles of ALARA. COMPARISON STUDY: CT abdomen and pelvis 06/15/2016 FINDINGS: Mild subsegmental linear bibasilar atelectasis. There is no pneumatosis or pneumoperitoneum identified. Coronary arterial calcifications are noted. The imaged inferior cardiac chambers are mildly enlarged. Limited evaluation of the solid abdominal organs without the use of IV contrast. Suggestion of mild h epatic steatosis without cirrhosis or focal hepatic mass lesion. Liver is mildly enlarged. Spleen is mildly enlarged, 13.4 cm. Pancreas and adrenal glands are unremarkable. Contracted gallbladder. Nonspecific bilateral perinephric stranding. Suggested cyst of the inferior pole right kidney, 1.3 cm. Cephalic 1.4 cm cyst of the superior pole left kidney. No meter nonobstructing calculus of the interpolar right kidney. Air is no right- sided ureteral calculi or obstructive uropathy. There are 2 nonobstructing calculi noted about the inferior pole left kidney measuring up to 4 mm. Mild to moderate left-sided hydroureteronephrosis with periureteral inflammation secondary to a 5 x 5 x 7 mm calculus of the distal left ureter approximately 1.0 cm proximal to the ureterovesicular junction. Decompressed bladder with wall thickening and perivesicular stranding. Prostamegaly. Small fat filled bilateral inguinal hernias. No aortic aneurysm or adenopathy. No bowel obstruction or bowel wall thickening. Colonic diverticulosis without acute diverticulitis. Mild gaseous distention of the large bowel. Noninflamed appendix. Small fat filled periumbilical hernia. Soft tissues are within normal limits. Degenerative changes of the spine, pelvis and hips. IMPRESSION: 1. Mild to moderate left-sided hydroureteronephrosis secondary to a 5 x 5 x 7 mm calculus of the distal left ureter approximately 1.0 cm proximal to the ureterovesicular junction. 2. Nonobstructing bilateral nephrolithiasis. 3. No bowel obstruction or bowel wall thickening. 4. Normal appendix. 5. Hepatosplenomegaly with hepatic steatosis. 6. Additional findings as above. Code Status & VTE Plan Code Status Full VTE Prophylaxis Plan VTE Prophylaxis will be ordered: Yes Supervising Physician Co-Signing Physician Notes Attending addendum: I have physically seen this patient, have supervised the medical residents activities, and agree with the H&P unless as otherwise noted. Assessment and Plan: Left hydroureteronephrosis/5 x 5 x 7 distal left ureteral calculus- Admit to medical surgical bed. NPO Hold aspirin preprocedure. IV fluids Ceftriaxone 1 g IV daily. Zofran 4 mg IV every 6 hours PRN. Acetaminophen 1 g IV every 8 hours as needed Follow urine culture sensitivity. Consult Dr. Aguila from urology, he has already been made aware of the patient by the ED. Remainder of orders and notations as noted. PG Care Time/CCT Total # of Minutes Spent Total Time Spent with Patient: Total time spent is greater than 50% in coordination of care (as documented) at patient's floor/unit and/or counseling patient: Resident Activity Tracking Resident Involvement: Resident Care Provided Care Provided: [facility]
--- NOTE | 2018-10-08 00:58 | Emergency Department Note ---
Entered by Tenzin Rubio acting as a scribe for History of Present Illness General Chief complaint: Abdominal Pain Stated complaint: LOWER ABD PAIN,FEVER,CHILLS Time Seen by Provider: 10/07/18 20:14 Source: patient History of Present Illness Onset (ago): day(s) 3 Location: left (flank) Pain Consistency: + other (worsening) Maximum Pain Intensity: 9 Associated symptoms: + other (Positive for fever and chills. Negative for nausea and vomiting.) The patient is a 73 year old male who presents to the emergency department with complaints of worsening left flank pain beginning 3 days ago. The patient states that he has a history of kidney stones and he believes that he currently has a left-sided kidney stone. He notes that he developed left flank pain three days ago that has worsened since. He also complains of a fever and chills. He denies any nausea and vomiting. Home Medications Home Medications Medication Instructions Recorded Confirmed Type metformin 500 mg tablet 1,000 mg PO BID #360 tab 09/11/18 10/07/18 Rx aspirin 81 mg PO QAM 10/07/18 10/07/18 History coenzyme Q10 [CoQ-10] 100 mg PO HS 10/07/18 10/07/18 History dutasteride 0.5 mg PO QAM 10/07/18 10/07/18 History gabapentin 300 mg PO HS 10/07/18 10/07/18 History montelukast 10 mg PO HS 10/07/18 10/07/18 History multivitamin 1 tab PO DAILY 10/07/18 10/07/18 History simvastatin 10 mg PO HS 10/07/18 10/07/18 History tamsulosin 0.4 mg PO DAILY 10/07/18 10/07/18 History Allergies Allergy/AdvReac Type Severity Reaction Status Date / Time fluticasone Allergy Unknown TACHYCARDIA Verified 10/07/18 21:20 salmeterol Allergy Unknown TACHYCARDIA Verified 10/07/18 21:20 Past Med/Surg History Medical History Diabetes (Chronic) Asthma (Chronic) HTN (hypertension) (Chronic) Flank pain (Acute) Kidney stones (Chronic) Family History Other No significant family history Social History Preferred Language: Faroese Feels Safe at Home: Yes Smoking Status: Never smoker Review of Systems See HPI for pertinent positives & negatives. and A total of 10 systems reviewed and were otherwise negative Physical Exam Vital Signs Vital Signs - 24 hr 10/07/18 20:10 10/07/18 22:32 Temperature 37.3 C Temperature Source Oral Sepsis Recent Fever Within 48 Hours No Sepsis New/Unexplained Change in Mental Status No Sepsis Action Taken by Nursing No Action Required Pulse Rate 98 H Pulse Rate [Finger] 75 Respiratory Rate 18 18 Blood Pressure 171/80 H Blood Pressure [Right Arm] 131/77 Blood Pressure Mean 110 Blood Pressure Mean [Right Arm] 95 Pulse Oximetry 96 95 Oxygen Delivery Method Room Air Room Air GENERAL: He is oriented to person, place, and time. He appears well-developed and well-nourished. He does not appear distressed. HENT: Exam performed. - Head: Normocephalic and atraumatic. - Right Ear: External ear normal. No mastoid tenderness. - Left Ear: External ear normal. No mastoid tenderness. - Mouth/Throat: The oropharynx is clear and moist. No trismus in the jaw. No dental abscesses or uvula swelling. No oropharyngeal exudate or tonsillar abscesses. EYES: Conjunctivae and EOM are normal. Pupils are equal, round, and reactive to light. Right eye exhibits no discharge. Left eye exhibits no discharge. No scleral icterus. NECK: Normal range of motion. Neck supple. No JVD present. No spinous process tenderness present. No carotid bruit present. No rigidity. No tracheal deviation and normal range of motion present. No Brudzinski's sign and no Kernig's sign noted. CV: Normal rate, regular rhythm, normal heart sounds and intact distal pulses. There is no peripheral edema. Palpable radial pulses bue. PULM/CHEST: Effort normal and breath sounds normal. No respiratory distress. No stridor. He has no wheezes. He has no rales. - Chest Wall: He exhibits no tenderness. ABD: The abdomen is soft. Bowel sounds are normal. He has no distension. No mass is present. There is no rebound, no guarding, no Martin's sign and no tenderness at McBurney's point. Rovsig negative. Pain to palpation of the LLQ. BACK: Left-sided CVA tenderness. MUSC/SKEL: Normal range of motion. There is no peripheral edema, tenderness or deformity. LYMPH: No cervical adenopathy. NEURO: He is alert and oriented to person, place, and time. He has normal strength. No cranial nerve deficit or sensory deficit. Coordination and gait normal. GCS eye subscore is 4. GCS verbal subscore is 5. GCS motor subscore is 6 . Cerebellar tests wnl. SKIN: Skin is warm and dry. He is not diaphoretic. PSYCH: He has a normal mood and affect. Behavior is normal. Judgment and thought content normal. Course 2018: The patient was evaluated in room C4. A complete history and physical exam was performed. 2229: I reevaluated the patient. His vitals are stable. His labs show leukocytosis of 13.2. His urine does not seem to be infected. CT shows a 5mm stone causing hydroureteronephrosis on the left. The patient states that Toradol helped his pain, but he is still worried about his pain if he is discharged. I offered an overnight stay in the hospital which the patient prefers. I contacted urology and the hospitalist team. Spoke with Dr. Aguila urology who stated to admit to the hospitalist team. Spoke with I spoke with Dr. Ji - Resident marketing education teacher for Dr. Hooper of the [facility] Hospitalist Service. The patient will be evaluated for further management. Consultations Consultation #1: I reviewed the patient's case with Dr. Ji - Resident operations examiner for Dr. Hooper - Hospitalist, [facility]. She will evaluate the patient for further management. Time: 00:23 Administered Medications Discontinued Medications Sodium Chloride (Nss 1000ml) 1,000 mls @ 999 mls/hr IV .Q1H1M ONE Stop: 10/07/18 21:20 Last Infusion: 10/07/18 21:38 Dose: 0 mls/hr Documented by: [id number] Admin: 10/07/18 20:36 Dose: 999 mls/hr Documented by: [id number] Ketorolac Tromethamine (Toradol) 15 mg IV NOW STA Stop: 10/07/18 20:21 Last Admin: 10/07/18 20:36 Dose: 15 mg Documented by: [id number] Ketorolac Tromethamine (Toradol) 15 mg IV NOW STA Stop: 10/07/18 22:25 Last Admin: 10/07/18 22:31 Dose: 15 mg Documented by: [id number] Medical Decision Making Medical Records Attestation: I reviewed the patient's medical records. Home Medications Current Medication List: was personally reviewed by me Laboratory Data Attestation: I reviewed the patient's lab results. Result diagrams: 10/07/18 20:32 10/07/18 20:32 Lab Results 10/07/18 10/07/18 10/07/18 Range/Units 20:32 20:32 20:33 WBC 13.24 H (4.8-10.8) K/uL RBC 4.51 L (4.7-6.1) M/uL Hgb 14.2 (14.0-18.0) g/dL Hct 40.4 L (42-52) % MCV 89.6 (80-100) fL MCH 31.5 (25-34) pg MCHC 35.1 (32-36) g/dL RDW Std Deviation 44.3 (36.4-46.3) fL RDW Coeff of [place] 13.5 (11.5-14.5) % Plt Count 216 (130-400) K/uL MPV 9.3 (7.4-10.4) fL Immature Gran % (Auto) 0.2 % Neut % (Auto) 78.8 % Lymph % (Auto) 11.2 % [place] % (Auto) 8.8 % Eos % (Auto) 0.5 % Baso % (Auto) 0.5 % Immature Gran # (Auto) 0.03 H (0.00-0.02) K/uL Neut # (Auto) 10.44 H (1.4-6.5) K/uL Lymph # (Auto) 1.48 (1.2-3.4) K/uL [place] # (Auto) 1.17 H (0.11-0.59) K/uL Eos # (Auto) 0.06 (0-0.5) K/uL Baso # (Auto) 0.06 (0-0.2) K/uL Sodium 137 (136-145) mmol/L Potassium 3.9 (3.5-5.1) mmol/L Chloride 105 (98-107) mmol/L Carbon Dioxide 26 (21-32) mmol/L Anion Gap 6.0 (3-11) BUN 20 H (7-18) mg/dl Creatinine 1.31 (0.6-1.4) mg/dl Est Cr Clr Drug Dosing 59.9 ml/min Est GFR ( Amer) 63.0 Est GFR (Non-Af Amer) 54.4 BUN/Creatinine Ratio 15.1 (10-20) Glucose 133 H (70-99) mg/dl Calcium 9.0 (8.5-10.1) mg/dl Total Bilirubin 0.7 (0.2-1) mg/dl Direct Bilirubin 0.2 (0-0.2) mg/dl AST 10 L (15-37) U/L ALT 25 (12-78) U/L Alkaline Phosphatase 63 (45-117) U/L Total Protein 7.4 (6.4-8.2) gm/dl Albumin 3.4 (3.4-5.0) gm/dl Lipase 147 (73-393) U/L Urine Color Yellow Urine Appearance Clear (Clear) Urine pH 5.0 (4.5-7.5) Ur Specific Bow 1.023 (1.000-1.030) Urine Protein Trace H (Negative) Urine Glucose (UA) 2+ H (Negative) Urine Ketones Negative (Negative) Urine Blood 1+ H (Negative) Urine Nitrite Negative (Negative) Urine Bilirubin Negative (Negative) Urine Urobilinogen Negative (Negative) Ur Leukocyte Esterase Negative (Negative) Urine WBC (Auto) 1-5 (0-5) /hpf Urine RBC (Auto) 0-4 (0-4) /hpf U Hyaline Cast (Auto) 1-5 (0-5) /lpf U Epithel Cells (Auto) 5-10 H (0-5) /lpf Urine Bacteria (Auto) Negative (Negative) Imaging Data Radiologist's Impression: Radiology results as stated below per my review and the radiologist's interpretation: ABDOMEN AND PELVIS CT WITHOUT CONTRAST FINDINGS: Mild subsegmental linear bibasilar atelectasis. There is no pneumatosis or pneumoperitoneum identified. Coronary arterial calcifications are noted. The imaged inferior cardiac chambers are mildly enlarged. Limited evaluation of the solid abdominal organs without the use of IV contrast. Suggestion of mild hepatic steatosis without cirrhosis or focal hepatic mass lesion. Liver is mildly enlarged. Spleen is mildly enlarged, 13.4 cm. Pancreas and adrenal glands are unremarkable. Contracted gallbladder. Nonspecific bilateral perinephric stranding. Suggested cyst of the inferior pole right kidney, 1.3 cm. Cephalic 1.4 cm cyst of the superior pole left kidney. No meter nonobstructing calculus of the interpolar right kidney. Air is no right-sided ureteral calculi or obstructive uropathy. There are 2 nonobstructing calculi noted about the inferior pole left kidney measuring up to 4 mm. Mild to moderate left-sided hydroureteronephrosis with periureteral inflammation secondary to a 5 x 5 x 7 mm calculus of the distal left ureter approximately 1.0 cm proximal to the ureterovesicular junction. Decompressed bladder with wall thickening and perivesicular stranding. Prostamegaly. Small fat filled bilateral inguinal hernias. No aortic aneurysm or adenopathy. No bowel obstruction or bowel wall thickening. Colonic diverticulosis without acute diverticulitis. Mild gaseous distention of the large bowel. Noninflamed appendix. Small fat filled periumbilical hernia. Soft tissues are within normal limits. Degenerative changes of the spine, pelvis and hips. IMPRESSION: 1. Mild to moderate left-sided hydroureteronephrosis secondary to a 5 x 5 x 7 mm calculus of the distal left ureter approximately 1.0 cm proximal to the ureterovesicular junction. 2. Nonobstructing bilateral nephrolithiasis. 3. No bowel obstruction or bowel wall thickening. 4. Normal appendix. 5. Hepatosplenomegaly with hepatic steatosis. 6. Additional findings as above. Electronically signed by: Suman Bennett M.D. 10/07/2018 9:23 PM Blood Pressure Blood Pressure Findings: Normal blood pressure Blood Pressure Disposition: did not require urgent referral MDM Narrative I reevaluated the patient. His vitals are stable. His labs show leukocytosis of 13.2. His urine does not seem to be infected. CT shows a 5mm stone causing hydroureteronephrosis on the left. The patient states that Toradol helped his pain, but he is still worried about his pain if he is discharged. I offered an overnight stay in the hospital which the patient prefers. I contacted urology and the hospitalist team. Spoke with Dr. Aguila urology who stated to admit to the hospitalist team. Spoke with I spoke with Dr. Ji - Resident marketing education teacher for Dr. Hooper of the [facility] Hospitalist Service. The patient will be evaluated for further management. Impression & Plan Kidney stone, Hydroureteronephrosis Discharge Plan Visit Data Chief Complaint: Abdominal Pain Stated Complaint: LOWER ABD PAIN,FEVER,CHILLS ED Provider: Vlad Perrin Discharge Problem: Kidney stone, Hydroureteronephrosis Patient Disposition: Being Evaluated by Hospitalist Forms Stand Alone Forms: Call Back Authorization, My [facility] Prescriptions Prescriptions: No Action metformin 500 mg tablet 1,000 mg PO BID Qty: 360 RF: 3 multivitamin Tablet 1 tab PO DAILY RF: 0 simvastatin 10 mg tablet 10 mg PO HS RF: 0 aspirin 81 mg Tablet,Delayed Release (Dr/Ec) 81 mg PO QAM RF: 0 tamsulosin 0.4 mg capsule 0.4 mg PO DAILY RF: 0 gabapentin 300 mg capsule 300 mg PO HS RF: 0 montelukast 10 mg tablet 10 mg PO HS RF: 0 coenzyme Q10 [CoQ-10] 100 mg Capsule 100 mg PO HS RF: 0 dutasteride 0.5 mg capsule 0.5 mg PO QAM RF: 0 Referrals Referrals: Flory Campos, DO [Primary Care Provider] - The scribe's documentation has been prepared under my direction and personally reviewed by me in its entirety. I confirm that the note above accurately ref lects all work, treatment, procedures, and medical decision making performed by me.
[2018-10-08] MEDS ORDERED: SIMETHICONE 80 MG CHEW PO STA (01:40)
[2018-10-08] MEDS ORDERED: POLYETHYLENE (MIRALAX) 17 GM PACK PO STA (01:40)
[2018-10-08] MEDS ORDERED: ONDANSETRON INJ 2 MG/ML 2 ML VIAL IV PRN ×2 (01:40→10:25)
[2018-10-08] MEDS ORDERED: cefTRIAXone SODIUM 1,000 MG in DEXTROSE 5% 50 ML IV SCH (01:40)
[2018-10-08] MEDS ORDERED: KETOROLAC 30 MG/ML VIAL IV PRN (01:40)
[2018-10-08] MEDS ORDERED: ACETAMINOPHEN 325 MG TAB PO PRN (01:40)
[2018-10-08] MEDS ORDERED: KETOROLAC TROMETHAMINE 15 MG/ML VIAL IV PRN (01:54)
[2018-10-08] MEDS ORDERED: DEXTROSE 50% 50 ML SYRINGE IV PRN (02:00)
[2018-10-08] MEDS ORDERED: GLUCAGON FOR INJ 1 MG VIAL SQ PRN (02:00)
[2018-10-08] MEDS ORDERED: cefTRIAXone SODIUM 2,000 MG in DEXTROSE 5% 50 ML IV SCH (02:00)
[2018-10-08] MEDS ORDERED: CARBOHYDRATES FOR HYPOGLYCEMIA PO PRN (02:00)
[2018-10-08] MEDS ORDERED: GLUCOSE 40% GEL 15 GM TUBE PO PRN (02:00)
[2018-10-08] MEDS ORDERED: GLUCOSE 10 TABS/TUBE PO PRN (02:00)
[2018-10-08] MEDS: DOCUSATE SODIUM 100 MG CAP PO SCH ×2 (02:17→08:20)
[2018-10-08] MEDS: SODIUM CHLORIDE 0.9% 1000ML 1,000 ML IV SCH ×2 (02:22→13:31)
[2018-10-08 05:52] LABS: Basophils # (auto) 0.05 K/uL (0-0.2); Basophils % (auto) 0.5 %; Eosinophils # (auto) 0.14 K/uL (0-0.5); Eosinophils % (auto) 1.5 %; Hemoglobin 11.9 g/dL (14.0-18.0); Immature Granulocytes # (auto) 0.02 K/uL (0.00-0.02); Immature Granulocytes % (auto) 0.2 %; Lymphocytes # (auto) 1.97 K/uL (1.2-3.4); Lymphocytes % (auto) 20.6 %; Mean Corpuscular Hemoglobin 30.7 pg (25-34); Mean Corpuscular Volume 90.2 fL (80-100); Mean Platelet Volume 9.4 fL (7.4-10.4); Monocytes # (auto) 0.91 K/uL (0.11-0.59); Monocytes % (auto) 9.5 %; Neutrophils # (auto) 6.47 K/uL (1.4-6.5); Neutrophils % (auto) 67.7 %; Platelet Count 169 K/uL (130-400); RDW Coefficient of Variation 13.7 % (11.5-14.5); Red Blood Count 3.88 M/uL (4.7-6.1); White Blood Count 9.56 K/uL (4.8-10.8)
[2018-10-08] MEDS: INSULIN ASPART 100 UNITS/ML 3 ML PEN SC SCH ×2 (06:19→14:39)
[2018-10-08 06:21] LABS: BUN Creatinine Ratio 22.5 (10-20); Calcium 7.8 mg/dl (8.5-10.1); Creatinine Clr Calc Pharmacy 70.1 ml/min; Est GFR (African American) 76.2; Est GFR (Non-African American) 65.7
[2018-10-08] MEDS ORDERED: MULTIVITAMIN TAB PO SCH (09:00)
[2018-10-08] MEDS ORDERED: TAMSULOSIN HCL 0.4 MG CAP PO SCH (09:00)
[2018-10-08] MEDS ORDERED: ASPIRIN 81 MG ECTAB PO SCH (09:00)
[2018-10-08] MEDS: AVODART~ORDER AWAITING ACTION SCH ×2 (09:06→15:17)
--- NOTE | 2018-10-08 09:38 | Urology Consultation ---
Date of Consultation October 08, 2018 Assessment & Plan (1) Hydroureteronephrosis: History of stones Hydroureteronephrosis secondary to calculus in left distal ureter 5 x 5 x 7 mm Afebrile Had Rocephin N.p.o. Discussed Cystoscopy with stent placement on left. Will consent. (2) Kidney stones: See above. History of Present Illness Attending Physician: Aldo Ferrara DO History of Present Illness Sudden onset of severe left pain in waves to groin. Improved with meds but severe and bothersome. Comes and goes. Moderated discomofrt at baseline Found to have 6-7 mm stone in distal left ureter. Has not passed in 24 hours. Continues to have significant discomfort. Previous history of stones. Has not had this large in past. Allergies Allergy/AdvReac Type Severity Reaction Status Date / Time fluticasone Allergy Unknown TACHYCARDIA Verified 10/07/18 21:20 salmeterol Allergy Unknown TACHYCARDIA Verified 10/07/18 21:20 Home Medications Home Medications Medication Instructions Recorded Confirmed Type metformin 500 mg tablet 1,000 mg PO BID #360 tab 09/11/18 10/07/18 Rx aspirin 81 mg PO QAM 10/07/18 10/07/18 History coenzyme Q10 [CoQ-10] 100 mg PO HS 10/07/18 10/07/18 History dutasteride 0.5 mg PO QAM 10/07/18 10/07/18 History gabapentin 300 mg PO HS 10/07/18 10/07/18 History montelukast 10 mg PO HS 10/07/18 10/07/18 History multivitamin 1 tab PO DAILY 10/07/18 10/07/18 History simvastatin 10 mg PO HS 10/07/18 10/07/18 History tamsulosin 0.4 mg PO DAILY 10/07/18 10/07/18 History Patient History Medical History Diabetes (Chronic) Asthma (Chronic) HTN (hypertension) (Chronic) Flank pain (Acute) Kidney stones (Chronic) Family History Other No significant family history Social History Preferred Language: Tajik Communication Ability: Effective 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 Patient is well nourished and well kept. HEENT: Normocephalic Atraumatic. Inspection normal. Cranial Nerves 2-12 Grossly intact. Nares are clear. Neck is supple. Normal inspection of face. Normal inspection of neck. Neurologic: No deficits on inspection. Baseline for motor function and sensory. Psychologic: Normal affect. Respiratory: Nonlabored. No use of accessory muscles. No tachypnea or dyspnea. Cardiovascular: No tachycardia Skin: [place] and Dry. No rashes or visible lesions. Extremities: Moving without issues. No motor deficits on inspection Lymphatics: No edema Abdomen: Soft Non-distended. No acites. No rebound or guarding. Genitourinary: Mild flank tenderness Results & Data Vital Signs (Past 12 Hours) Vital Signs Temp Pulse Resp BP Pulse Ox 10/08/18 07:06 36.6 C 65 18 110/65 95 10/08/18 01:49 37.0 C 76 18 128/71 96 10/08/18 01:40 37 C 76 16 128/71 96 10/07/18 22:32 75 18 131/77 95 PG Care Time/CCT Total # of Minutes Spent Total Time Spent with Patient: Total time spent is greater than 50% in coordination of care (as documented) at patient's floor/unit and/or counseling patient:
--- NOTE | 2018-10-08 10:04 | Anesthesiology Consultation ---
Date of Service October 08, 2018 Assessment & Plan Chart Review Chart Review: Acceptable Risk for Surgery and Patient NOT seen in Pre Admission Testing Consults Requested none ASA [id number] Proposed Anesthesia Anesthesia Type: General History Surgery Operation Date: 10/08/18 10:00 Proposed Procedures p Ureteral Stent Insertion/Removal(Left) - Eladio Aguila II, DO Height/Weight Height: 5 ft 8 in Weight: 102.1 kg Allergies Allergy/AdvReac Type Severity Reaction Status Date / Time fluticasone Allergy Unknown TACHYCARDIA Verified 10/07/18 21:20 salmeterol Allergy Unknown TACHYCARDIA Verified 10/07/18 21:20 Medications Home Medications Medication Instructions Recorded Confirmed Last Taken metformin 500 mg tablet 1,000 mg PO BID #360 tab 09/11/18 10/07/18 Unknown aspirin 81 mg PO QAM 10/07/18 10/07/18 Unknown coenzyme Q10 [CoQ-10] 100 mg PO HS 10/07/18 10/07/18 Unknown dutasteride 0.5 mg PO QAM 10/07/18 10/07/18 Unknown gabapentin 300 mg PO HS 10/07/18 10/07/18 Unknown montelukast 10 mg PO HS 10/07/18 10/07/18 Unknown multivitamin 1 tab PO DAILY 10/07/18 10/07/18 Unknown simvastatin 10 mg PO HS 10/07/18 10/07/18 Unknown tamsulosin 0.4 mg PO DAILY 10/07/18 10/07/18 Unknown Active Medications Generic Name Dose Route Start Last Admin Trade Name Freq PRN Reason Stop Dose Admin Aspirin 81 mg 10/08/18 09:00 10/08/18 08:21 Ecotrin Ectab PO 11/07/18 08:59 81 mg QAM CHEKO Administration Docusate Sodium 100 mg 10/08/18 01:40 10/08/18 08:20 Colace PO 11/07/18 01:39 100 mg BID CHEKO Administration Sodium Chloride 1,000 mls @ 125 mls/hr 10/08/18 01:40 10/08/18 06:04 Nss 1000ml IV 11/07/18 01:39 125 mls/hr .Q8H CHEKO Infusion Ceftriaxone Sodium 2,000 mg/ 70 mls @ 140 mls/hr 10/08/18 02:00 10/08/18 02:52 Dextrose IV 10/18/18 01:59 Infused Q24H CHEKO Infusion Insulin Aspart 0 units 10/08/18 06:00 10/08/18 06:19 Novolog Flexpen SC 11/07/18 05:59 Not Given Q6 CHEKO Miscellaneous 1 ea 10/08/18 08:00 10/08/18 09:06 Order Awaiting Action N/A 11/07/18 07:59 Not Given QS CHEKO Multivitamins 1 tab 10/08/18 09:00 10/08/18 08:22 Multivitamin Tab PO 11/07/18 08:59 1 tab DAILY CHEKO Administration Tamsulosin HCl 0.4 mg 10/08/18 09:00 10/08/18 08:41 Flomax PO 11/07/18 08:59 Not Given DAILY CHEKO NPO Date Last Intake of Fluids: 10/07/18 Time Last Intake of Fluids: 23:59 Last Intake of Fluids Comment: sips of water with pills this morning Date Last Intake of Solids: 10/07/18 Time Last Intake of Solids: 23:59 Past Medical History Medical History Diabetes (Chronic) Asthma (Chronic) HTN (hypertension) (Chronic) Flank pain (Acute) Kidney stones (Chronic) Anemia Coronary artery calcification HLD (hyperlipidemia) Hydronephrosis, left Obesity Exercise / Class Metabolic Activity III < 4 Walking/Shop/Light housework Past Family History Family History Other No significant family history Past Anesthesia History No Hx of Anesthesia Complications and No Family Hx of Anesthesia Complications History of PONV No Hx of PONV and No Hx of Motion Sickness Social History Smoking Status: Never smoker Hx Alcohol Use: Yes alcohol intake frequency: holidays/special occasions only Hx Substance Use: No Physical Exam Vital Signs Last Vital Signs Temp 36.6 C 10/08/18 07:06 Pulse 65 10/08/18 07:06 Resp 18 10/08/18 07:06 BP 110/65 10/08/18 07:06 Pulse Ox 95 10/08/18 07:06 Testing Laboratory Results 10/08/18 05:41 10/08/18 05:41 Urine Color Yellow 10/07/18 20:33 Urine Appearance Clear (Clear) 10/07/18 20:33 Urine pH 5.0 (4.5-7.5) 10/07/18 20:33 Ur Specific [place] 1.023 (1.000-1.030) 10/07/18 20:33 Urine Protein Trace (Negative) H 10/07/18 20:33 Urine Glucose (UA) 2+ (Negative) H 10/07/18 20:33 Urine Ketones Negative (Negative) 10/07/18 20:33 Urine Nitrite Negative (Negative) 10/07/18 20:33 Ur Leukocyte Esterase Negative (Negative) 10/07/18 20:33 Urine WBC (Auto) 1-5 /hpf (0-5) 10/07/18 20:33 Urine RBC (Auto) 0-4 /hpf (0-4) 10/07/18 20:33 U Hyaline Cast (Auto) 1-5 /lpf (0-5) 10/07/18 20:33 U Epithel Cells (Auto) 5-10 /lpf (0-5) H 10/07/18 20:33 Urine Bacteria (Auto) Negative (Negative) 10/07/18 20:33 10/08/18 05:48 POC Glucose 115 H
[2018-10-08] MEDS ORDERED: ePHEDrine sulfate 50 MG/ML AMP IV PRN (10:25)
[2018-10-08] MEDS ORDERED: NALOXONE HCL 0.4 MG/1 ML VIAL/CARP IV PRN (10:25)
[2018-10-08] MEDS ORDERED: LABETALOL HCL IV 5 MG/ML 20ML IV PRN (10:25)
[2018-10-08] MEDS ORDERED: PROMETHAZINE HCL 12.5 MG in SODIUM CHLORIDE 0.9% 50 ML IV PRN (10:25)
[2018-10-08] MEDS ORDERED: fentaNYL citrate 100 MCG/2 ML VIAL IV PRN (10:25)
[2018-10-08] MEDS ORDERED: ATROPINE SULFATE 0.1 MG/ML 10ML SYR IV PRN (10:25)
[2018-10-08] MEDS ORDERED: FLUMAZENIL 0.1 MG/1 ML 10 ML VIAL IV PRN (10:25)
[2018-10-08] MEDS ORDERED: IOTHALAMATE MEGLUMINE II 17.2% 250 ML VIAL ONE (10:56)
[2018-10-08] MEDS ORDERED: MIDAZOLAM HCL 1 MG/ML 2ML VIAL ONE (10:58)
[2018-10-08] MEDS ORDERED: fentaNYL citrate 100 MCG/2 ML VIAL ONE (10:58)
[2018-10-08] MEDS ORDERED: ONDANSETRON INJ 2 MG/ML 2 ML VIAL ONE (11:23)
[2018-10-08] MEDS ORDERED: LIDOCAINE HCL 2% 2 ML VIAL/AMP(20MG/ML) INFIL ONE (11:23)
[2018-10-08] MEDS ORDERED: PROPOFOL IV EMULSION 10 MG/ML 20 ML VIAL IV ONE (11:24)
--- NOTE | 2018-10-08 11:36 | Operative Report ---
Post Operative Report Pre & Post Diagnosis Obs Left Stone Same Operation Date: 10/08/18 10:00 <No data on this case meets the specified criteria> Procedure Cystoscopy with left retrograde pyelogram and stent. Operation Date: 10/08/18 10:00 <No data on this case meets the specified criteria> Surgeon Eladio Aguila, II, DO Wildlife Veterinarian None Estimated Blood Loss 1 Findings Consistent with Post-Op Diagnosis Specimens None Drains 6 Fr Multilength Anesthesia Type General Complications none Disposition Disposition: Recovery Room Indications Obstructing stone with pain. Risks and benefits discussed at length. Description of Procedure Patient was consented and brought back to the operating room. Patient was placed under anesthesia in the supine position and moved to the dorsal lithotomy position. Patient was prepped and draped in the regular sterile fashion. A time out was completed. A 30degree Cystoscope was placed into the bladder and the entire bladder was examined. The UO's were identified. The left was cannulized with a catheter and a retrograde pyelogram was completed. A significant hydronephrotic drip was noted with some sediment. A wire was then placed. With the wire in place, a 6 Fr Double J stent was placed. It was confirmed with fluoroscopy. With the stent in place, the bladder was emptied. The scope was removed. The patient was cleaned, aroused from anesthesia, and transferred to the pacu in stable condition having tolerated the procedure well with no complications. I was present and participated in all aspects of the procedure. The patient will be monitored in the PACU until transferred. I attest to the content of the Intraoperative Record and any orders documented therein. Any exceptions are noted below.
--- NOTE | 2018-10-08 11:43 | Fluoroscopy Report ---
FL retrograde includes kub HISTORY: 73 years-old Male STENT PLACEMENT STATUS post placement of a left ureteral stent. Left hydr onephrosis COMPARISON: CT abdomen and pelvis 10/07/2018 TECHNIQUE: 2 spot fluoroscopic images of the left abdomen were obtained utilizing 20.2 seconds fluoro scopy time FINDINGS: Status post placement of a left ureteral stent which appears to be in satisfactory positioning. Mild pelviectasis of the left kidney. Previously described distal left ureteral calculus is not identified . IMPRESSION: Fluoroscopic assistance as above. Please see procedural report for further details. The above report was generated using voice recognition software. It may contain grammatical, syntax o r spelling errors. Electronically signed by: Suman Bennett M.D. 10/08/2018 11:42 AM
--- NOTE | 2018-10-08 12:18 | Anesthesiology Progress Note ---
Date of Service October 08, 2018 Anesthesia Post Procedure Vital Signs Vital Signs: Temp Pulse Pulse Resp BP BP Pulse Ox 10/08/18 12:10 65 18 113/67 94 10/08/18 12:00 65 18 102/65 98 10/08/18 11:50 53 L 18 102/58 L 97 10/08/18 11:49 36 L 16 110/67 96 10/08/18 07:06 36.6 C 65 18 110/65 95 10/08/18 01:49 37.0 C 76 18 128/71 96 10/08/18 01:40 37 C 76 16 128/71 96 10/07/18 22:32 75 18 131/77 95 10/07/18 20:10 37.3 C 98 H 18 171/80 H 96 Pain Intensity Abdomen: Pain Intensity: 5 Flank: Pain Intensity: 2 Transfer of Care Handoff Completed per policy Notes Mental Status: alert / awake / arousable Patient Amnestic to Procedure: Yes Nausea / Vomiting: adequately controlled Pain: adequately controlled Airway Patency, RR, SpO2: stable & adequate BP & HR: stable & adequate Hydration State: stable & adequate Anesthetic Complications: no major complications apparent
--- NOTE | 2018-10-08 17:30 | Discharge Summary ---
Date of Service October 08, 2018 Admission HPI Per Admitting Provider 73-year-old male with history of prior kidney stones, DM 2, asthma, hypertension presents with recurrent episode of kidney stone. Reports left-sided low back pain and flank pain starting Tuesday, 4 days ago. Pain is constant in nature and occasionally he also has stabbing pain. 9 out of 10 in intensity. Associated with left-sided abdominal pain, nausea, fever highest temp reported 100.7, chills. Reports also feeling somewhat bloated and constipated today. Last bowel movement was yesterday, nonbloody loose and not dark in color. Denies any headache, lightheadedness, chest pain, shortness of breath, vomiting, dysuria.. Reports multiple previous episodes of hospitalization for kidney stones but no procedures. Discharge Data Consultations 10/07/18 22:25 ED Decision to Admit Stat 10/08/18 01:40 Consult Urology Routine Procedures Performed Operation Date: 10/08/18 10:00 Actual Procedures p Cystoscopy, left retrograde pyelogram, left Ureteral Stent Insertion(Left) - Eladio Aguila II, DO Hospital Course (1) Hydroureteronephrosis: 73-year-old male with history of prior kidney stones, DM 2, asthma, hypertension presents with recurrent episode of kidney stone. Reports left- sided low back pain and flank pain starting Tuesday, 4 days; Found to have hydroureteronephrosis secondary to calculus in the left distal ureter Hydroureteronephrosis -secondary to calculus in left distal ureter 5 x 5 x 7 mm -CT abdomen: hydroureteronephrosis secondary to 5 x 5 x 7 mm calculus left distal ureter 1 cm proximal to ureterovesicular junction -Urology: placed ureter stent with relief of calculus -placed on 7 day course of Bactrim once daily (to be completed on 10/16/18) Type 2 Diabetes Mellitus: -continue home metformin -continue home simvastatin and aspirin Asthma: -continue home montelukast BPH: -continue home tamsulosin and dutasteride Chronic back pain: -continue home gabapentin Code: Full (2) Diabetes: (3) Asthma: (4) HTN (hypertension): (5) Kidney stones: Supervising Physician Co-Signing Physician Notes I personally examined the patient and verified all bradford points of history and exam, discussed case, and agree with decision making with Dr Garcia. Seen postop. Feeling good. No pain. Eating and drinking okay. Would like to go home. Urology input appreciated. Vitals noted, in general he is pleasant no distress. HEENT normocephalic atraumatic mucous members moist. Breathing unlabored no accessory muscle use good effort. Skin shows no rashes no pallor or icterus. Ureterolithiasisnow stable postop, stable from. Otherwise as above. Resident Activity Tracking Resident Involvement: Resident Care Provided Care Provided: Adult [facility]
[2018-10-08] MEDS ORDERED: MONTELUKAST SODIUM 10 MG TABLET PO SCH (21:00)
[2018-10-08] MEDS ORDERED: GABAPENTIN 300 MG CAP PO SCH (21:00)
[2018-10-08] MEDS ORDERED: NON-FORMULARY MEDICATION (Coenzyme Q10 [Coq-10] 100 MG) PO SCH (21:00)
[2018-10-08] MEDS ORDERED: SIMVASTATIN 10 MG TAB PO SCH (21:00)
[2018-10-13] MEDS ORDERED: ePHEDrine sulfate 50 MG/ML AMP IV PRN (07:47)
[2018-10-13] MEDS ORDERED: ATROPINE SULFATE 0.1 MG/ML 10ML SYR IV PRN (07:47)
[2018-10-13] MEDS ORDERED: fentaNYL citrate 100 MCG/2 ML VIAL IV PRN (07:47)
[2018-10-13] MEDS ORDERED: KETOROLAC 30 MG/ML VIAL IV PRN (07:47)
== END 2018-10-08 19:20 | disposition home or self-care (01) | DRG 661 ==
LOC: ED 20:08 → SUATTDRO 10-08 00:31 → 3E 10-08 00:31 → 2N 10-08 11:52